=== PATIENT | female | born 1930 | race Caucasian/White ===

== ENCOUNTER 2018-12-28 14:50 | Emergency (ER) | payer MEDICARE, OTHER ==
[~2018-12-28] VITALS: Ht 167.6 cm; Wt 59.0 kg
--- NOTE | ~2018-12-28 | EKG ---
[facility] [address] [facility] [place], [place] [address] Draft EK completed, results pending confirmation PATIENT NAME: MICHAEL SMALL Electrocardiogram DATE OF : [birth year] PHYSICIAN: PRELIMINARY REPORT #: [id number] REPORT IS CONFIDENTIAL AND NOT TO BE RELEASED WITHOUT AUTHORIZATION
--- NOTE | ~2018-12-28 | EKG ---
[facility] [address] [facility] [place], [place] [address] Draft EKG completed, results pending confirmation PATIENT NAME: MICHAEL PAULINO [facility] Electrocardiogram DATE OF : [birth year] PHYSICIAN: PRELIMINARY REPORT #: [id number] REPORT IS CONFIDENTIAL AND NOT TO BE RELEASED WITHOUT AUTHORIZATION
--- OUTSIDE RECORDS SUMMARY | ~2018-12-28 | XMS | Encounter Summary ---
Demographics + + + | Address | [address] | | | [place] [address] | + + + | Home Phone | | + + + | Preferred Language | Unknown | + + + | Marital Status | | + + + | Buddhism Affiliation | Unknown | + + + | Race | Unknown | + + + | Ethnic Group | Unknown | + + + Author + + + | Author | [facility] | | | and [place] | + + + | Organization | [facility] | | | and Joseana | + + + | Address | Unknown | + + + | Phone | Unavailable | + + + Support + + +---------+ + | Name | Relationship | Address | Phone | + + +---------+ + | Nael Severe | ECON | Unknown | | + + +---------+ + Care Team Providers + +------+ + | Care Printing And Stamping Supervisor Name | Role | Phone | + +------+ + PCP | Unavailable | + +------+ + Encounter Details +--------+ + + + + | Date | Type | Department | Care Team | Description | +--------+ + + + + | 09/06/ | [facility] | [facility] | Jas Buchanan, | | | 2011 | Encounter | HOSPITAL REGIONAL | [address] [facility] | | | | | MEDICAL CL[address] | [facility] [place] | | | | | [address] [place], | [address] | | | | | [place] [address] | [phone] | | | | | [phone] | | | +--------+ + + + + Social History + +-------+ +--------+------+ | Tobacco Use | Types | Packs/Day | Years | Date | | | | | Used | | + +-------+ +--------+------+ | Never Assessed | | | | | + +-------+ +--------+------+ + + + | Sex Assigned at | Date Recorded | | | | + + + | Not on file | | + + + + + + + | Job Start Date | Occupation | Industry | + + + + | Not on file | Not on file | Not on file | + + + + + + + + | Travel History | Travel Start | Travel End | + + + + + + | No recent travel history available. | + + documented as of this encounter Medications at Time of Discharge + + + +---------+ + + | Medication | Sig | Dispensed | Refills | Start | End Date | | | | | | Date | | + + + +---------+ + + | oxyCODONE | take 1-2 tablets by | | 0 | 11/14/19 | | | (ROXICODONE) 5 mg | mouth every 4 hours | | | 10 | 7 | | tablet | as needed for pain | | | | | + + + +---------+ + + documented as of this encounter Plan of Treatment Not on filedocumented as of this encounter Visit Diagnoses Not on filedocumented in this encounter"
--- OUTSIDE RECORDS SUMMARY | ~2018-12-28 | XMS | Encounter Summary ---
Demographics + + + | Address | [address] | | | [place] [address] | + + + | Home Phone | | + + + | Preferred Language | Unknown | + + + | Marital Status | | + + + | Rastafari Affiliation | Unknown | + + + | Race | Unknown | + + + | Ethnic Group | Unknown | + + + Author + + + | Author | [facility] | | | and Joseana | + + + | Organization | [facility] | | | and Joseana [...] Team Providers + +------+ + | Care Head Butler Name | Role | Phone | + +------+ + PCP | Unavailable | + +------+ + Encounter Details +--------+ + + + + | Date | Type | Department | Care Team | Description | +--------+ + + + + | 03/26/ | Hospital | [facility] | Jas Buchanan, | | | 2011 | Encounter | HOSPITAL XRAY 900 | [address] [place] | | | | | [place] | [place] | | | | | [place] | [address] | | | | | [address] | [phone] | | | | | [phone] | | | +--------+ + + + [...]
--- OUTSIDE RECORDS SUMMARY | ~2018-12-28 | XMS | Encounter Summary ---
Demographics + + + | Address | [address] | | | [place] [address] | + + + | Home Phone | | + + + | Preferred Language | Unknown | + + + | Marital Status | | + + + | Adventist Affiliation | Unknown | + + + | Race | Unknown | + + + | Ethnic Group | Unknown | + + + Author + + + | Author | [facility] | | | and [place]ana | + + + | Organization | [facility] | | | and Joseana | [...] Team Providers + +------+ + | Care Clinical Abstractor Name | Role | Phone | + +------+ + PCP | Unavailable | + +------+ + Encounter Details +--------+ + + + + | Date | Type | Department | Care Team | Description | +--------+ + + + + | 03/01/ | Hospital | [facility] | Jas Buchanan, | | | 2013 | Encounter | HOSPITAL LABORATORY | [address] [place] | | | | | [address] [place] | [place] | | | | | [place] | [address] | | | | | [address] | [phone] | | | | | [phone] | | | +--------+ + + + [...] Not on filedocumented as of this encounter Procedures + +--------+ + + + | Procedure Name | Priori | Date/Time | Associated Diagnosis | Comments | | | ty | | | | + +--------+ + + + | URINALYSIS | STAT | 03/01/2013 | | Results for this | | | | 6:00 PM | | procedure are in the | | | | PST | | results section. | + +--------+ + + + documented in this encounter Results Urinalysis (03/01/2013 6:00 PM PST) + + + + + + | Component | Value | Ref Range | Performed | Pathologist | | | | | At | Signature | + + + + + + | Source | VOIDED | | EXTERNAL | | | | | | LAB | | + + + + + + | Color | YELLOW | YELLOW | EXTERNAL | | | | | | LAB | | + + + + + + | Clarity | CLEAR | CLEAR | EXTERNAL | | | | | | LAB | | + + + + + + | Glucose, | NORMAL | NORMAL mg/dL | EXTERNAL | | | Urine | | | LAB | | + + + + + + | Bilirubin, | NEGATIVE | NEGATIVE mg/dL | EXTERNAL | | | Urine | | | LAB | | + + + + + + | Ketones, | NEGATIVE | NEGATIVE mg/dL | EXTERNAL | | | Urine | | | LAB | | + + + + + + | Specific | 1.02 | 1.005 - 1.030 | EXTERNAL | | | [place], | | | LAB | | | Urine | | | | | + + + + + + | pH, Urine | 5 | 5.0 - 7.0 pH | EXTERNAL | | | | | | LAB | | + + + + + + | Protein, | NEGATIVE | NEGATIVE mg/dL | EXTERNAL | | | Urine | | | LAB | | + + + + + + | Urobilinoge | NORMAL | NORMAL mg/dL | EXTERNAL | | | n, Urine | | | LAB | | + + + + + + | Nitrite, | NEGATIVE | NEGATIVE | EXTERNAL | | | Urine | | | LAB | | + + + + + + | Blood, | NEGATIVE | NEGATIVE /uL | EXTERNAL | | | Urine | | | LAB | | + + + + + + | Leukocyte | 25 | NEGATIVE /uL | EXTERNAL | | | Esterase, | | | LAB | | | Urine | | | | | + + + + + + | WBC UA | NONE SEEN | </= 5 /HPF | EXTERNAL | | | | | | LAB | | + + + + + + | RBC COUNT | NONE SEEN | </= 5 PER HPF | EXTERNAL | | | | | | LAB | | + + + + + + | Culture | NO | | EXTERNAL | | | Indicated | | | LAB | | + + + + + + | Bacteria, | NONE SEEN | NONE SEEN /HPF | EXTERNAL | | | UA | | | LAB | | + + + + + + | SQUAMOUS | NONE SEEN | FEW /LPF | EXTERNAL | | | EPITHELIAL | | | LAB | | | UA | | | | | + + + + + + + + | Specimen | + + | | + + + +---------+ + + | Performing | Address | City/State/Zipcode | Phone Number | | Organization | | | | + +---------+ + + | EXTERNAL LAB | | | | + +---------+ + + documented in this encounter Visit Diagnoses Not on filedocumented in this encounter"
--- OUTSIDE RECORDS SUMMARY | ~2018-12-28 | XMS | Encounter Summary ---
Demographics + + + | Address | [address] | | | [place] [address] | + + + | Home Phone | | + + + | Preferred Language | Unknown | + + + | Marital Status | | + + + | Yarsani Affiliation | Unknown | + + + | Race | Unknown | + + + | Ethnic Group | Unknown | + + + Author + + + | Author | [facility] | | | and [place]ana | + + + | Organization | [facility] and [facility] | | | and Joseana [...] Team Providers + +------+ + | Care Rug Cleaning Supervisor Name | Role | Phone | + +------+ + PCP | Unavailable | + +------+ + Encounter Details +--------+ + + + + | Date | Type | Department | Care Team | Description | +--------+ + + + + | 07/09/ | Hospital | [facility] OP | Rustam Daily | | | 2009 | Encounter | CONVERSION | MD Rachel [address] | | | | | [address]PART[address] | | | [address] | [place] [address] | | | | | [place], [place] | [phone] | | | | | [address] | | | | | | [phone] | | | +--------+ + + + [...]
--- OUTSIDE RECORDS SUMMARY | ~2018-12-28 | XMS | Encounter Summary ---
Demographics + + + | Address | [address] | | | [place] [address] | + + + | Home Phone | | + + + | Preferred Language | Unknown | + + + | Marital Status | | + + + | Anglican Affiliation | Unknown | + + + | Race | Unknown | + + + | Ethnic Group | Unknown | + + + Author + + + | Author | [facility] | | | and [place] | + + + | Organization | [facility] and [facility] | | | and Joseana [...] Team Providers + +------+ + | Care Aircraft Designer Name | Role | Phone | + +------+ + PCP | Unavailable | + +------+ + Encounter Details +--------+ + + + + | Date | Type | Department | Care Team | Description | +--------+ + + + + | 11/10/ | Hospital | [facility] | Jas Buchanan, | | | 2009 | Encounter | HOSPITAL GENERIC OP | [address] [place] | | | | | CONVERSION | [place] | | | | | DEPART[address] | [address] | | | | | [place] | [phone] | | | | | [place] | | | | | | [address] | | | | | | [phone] | | | +--------+ + + + [...]
--- OUTSIDE RECORDS SUMMARY | ~2018-12-28 | XMS | Encounter Summary ---
Demographics + + + | Address | [address] | | | [place] [address] | + + + | Home Phone | | + + + | Preferred Language | Unknown | + + + | Marital Status | | + + + | Amish Affiliation | Unknown | + + + | Race | Unknown | + + + | Ethnic Group | Unknown | + + + Author + + + | Author | [facility] and [facility] | | | and Joseana | + + + | Organization | [facility] and [facility] | | [...] Team Providers + +------+ + | Care Oil Burner Installer Name | Role | Phone | + +------+ + PCP | Unavailable | + +------+ + Encounter Details +--------+ + + + + | Date | Type | Department | Care Team | Description | +--------+ + + + + | 10/28/ | Hospital | [facility] | Luis Hyde E, | | | 2009 | Encounter | MED CTR GENERIC OP | MD [address] [facility] | | | | | CONV DEPT [address] | [place] | | | | | [place], | [id number] | | | | | [place] [address] | | | | | | [phone] | | | +--------+ + + + [...]
--- OUTSIDE RECORDS SUMMARY | ~2018-12-28 | XMS | Encounter Summary ---
Demographics + + + | Address | [address] | | | [place] [address] | + + + | Home Phone | | + + + | Preferred Language | Unknown | + + + | Marital Status | | + + + | Mandaeism Affiliation | Unknown | + + + | Race | Unknown | + + + | Ethnic Group | Unknown | + + + Author + + + | Author | [facility] | | | and Joseana | + + + | Organization | [facility] and [facility] | | | and Joseana [...] Team Providers + +------+ + | Care Technical Account Manager Name | Role | Phone | + +------+ + | Adolph Balderas MD | PCP | | + +------+ + Reason for Visit + + + | Reason | Comments | + + + | Appointment Question | | + + + Encounter Details +--------+ + + + + | Date | Type | Department | Care Team | Description | +--------+ + + + + | 05/11/ | Telephone | [facility] | Luis [place], | Appointment Question | | 2016 | | ORTHOPEDIC SURGERY | MD [address] [facility] | | | | | [address] [facility] | [place] | | | | | [place] | [address] | | | | | [address] | | | | | | [phone] | | | +--------+ + + + + Social History + +-------+ +--------+------+ | Tobacco Use | Types | Packs/Day | Years | Date | | | | | Used | | + +-------+ +--------+------+ | Never Smoker | | | | | + +-------+ +--------+------+ + +---+---+---+ | Smokeless Tobacco: | | | | | Never Used | | | | + +---+---+---+ + + +---------+ + | Alcohol Use | Drinks/Week | oz/Week | Comments | + + +---------+ + | No | | | | + + +---------+ + + + + | Sex Assigned at [...]
--- OUTSIDE RECORDS SUMMARY | ~2018-12-28 | XMS | Encounter Summary ---
Demographics + + + | Address | [address] | | | [place] [address] | + + + | Home Phone | | + + + | Preferred Language | Unknown | + + + | Marital Status | | + + + | Sabianist Affiliation | Unknown | + + + | Race | Unknown | + + + | Ethnic Group | Unknown | + + + Author + + + | Author | [facility] | | | and [place] | + + + | Organization | [facility] | | | and Joseana [...] Team Providers + +------+ + | Care Charge Nurse Name | Role | Phone | + +------+ + PCP | Unavailable | + +------+ + Encounter Details +--------+ + + + + | Date | Type | Department | Care Team | Description | +--------+ + + + + | 12/10/ | [facility] | [place] | Jas Buchanan, | | | 2011 | Encounter | HOSPITAL REGIONAL | [address] [facility] | | | | | MEDICAL CLINIC [address] | [facility] [place] | | | | | [address] [place], | [address] | | | | | [place] [address] | [phone] | | | | | [phone] | | | +--------+ + + + [...]
--- OUTSIDE RECORDS SUMMARY | ~2018-12-28 | XMS | Encounter Summary ---
Demographics + + + | Address | [address] | | | [place] [address] | + + + | Home Phone | | + + + | Preferred Language | Unknown | + + + | Marital Status | | + + + | Synagogue Affiliation | Unknown | + + + | Race | Unknown | + + + | Ethnic Group | Unknown | + + + Author + + + | Author | [facility] and [facility] | | | and [place]ana | + + + | Organization | [facility] and [facility] | | | and Joseana [...] Team Providers + +------+ + | Care Press Machine Operator Name | Role | Phone | + +------+ + PCP | Unavailable | + +------+ + Encounter Details +--------+ + + + + | Date | Type | Department | Care Team | Description | +--------+ + + + + | 12/11/ | Hospital | [facility] | Luis Hyde, | | | 2009 | Encounter | MED CTR LABORATORY | [address] [place] [address] | | | | | [address] | [place] | | | | | [place] | [address] | | | | | [address] | | | | | | [phone] | | | +--------+ + + + [...]
--- OUTSIDE RECORDS SUMMARY | ~2018-12-28 | XMS | Encounter Summary ---
Demographics + + + | Address | [address] | | | [place] [address] | + + + | Home Phone | | + + + | Preferred Language | Unknown | + + + | Marital Status | | + + + | Mandaeism Affiliation | Unknown | + + + | Race | Unknown | + + + | Ethnic Group | Unknown | + + + Author + + + | Author | [facility] and [facility] | | | and [place] | + + + | Organization | [facility] and [facility] | | | and Joseana [...] Team Providers + +------+ + | Care Public Records Officer Name | Role | Phone | + +------+ + PCP | Unavailable | + +------+ + Encounter Details +--------+ + + + + | Date | Type | Department | Care Team | Description | +--------+ + + + + | 10/18/ | Hospital | [facility] | Graeme Solorio | | | 2012 | Encounter | HOSPITAL LABORATORY | [place]AB[place] [address] | | | | | [address] [place] | [facility] [place] | | | | | [place], [place] | [address] | | | | | [address] | [phone] | | | | | [phone] | | | +--------+ + + + [...]
--- OUTSIDE RECORDS SUMMARY | ~2018-12-28 | XMS | Encounter Summary ---
Demographics + + + | Address | [address] | | | [place] [address] | + + + | Home Phone | | + + + | Preferred Language | Unknown | + + + | Marital Status | | + + + | Jehovah'S Witness Affiliation | Unknown | + + + | Race | Unknown | + + + | Ethnic Group | Unknown | + + + Author + + + | Author | [facility] | | | and [place] | + + + | Organization | [facility] | | | and [...] Team Providers + +------+ + | Care Cottrell Blower Name | Role | Phone | + +------+ + PCP | Unavailable | + +------+ + Encounter Details +--------+ + + + + | Date | Type | Department | Care Team | Description | +--------+ + + + + | 05/13/ | Hospital | [facility] | Dionicio Lucia, | | | 2012 | Encounter | HOSPITAL LABORATORY | 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
--- OUTSIDE RECORDS SUMMARY | ~2018-12-28 | XMS | Encounter Summary ---
Demographics + + + | Address | [address] | | | [place] [address] | + + + | Home Phone | | + + + | Preferred Language | Unknown | + + + | Marital Status | | + + + | Hoahaoism Affiliation | Unknown | + + + | Race | Unknown | + + + | Ethnic Group | Unknown | + + + Author + + + | Author | [facility] | | | and [place] | + + + | Organization | [facility] and [facility] | | | and [place]ana | [...] Team Providers + +------+ + | Care Photo Lab Technician Name | Role | Phone | + +------+ + PCP | Unavailable | + +------+ + Encounter Details +--------+ + + + + | Date | Type | Department | Care Team | Description | +--------+ + + + + | 12/09/ | [facility] | [place] [facility] | Jas Buchanan, | | | 2011 | Encounter | HOSPITAL REGIONAL | [address] [facility] | | | | | MEDICAL CL[address] | [facility] | | | | | [address] [facility], | [address] | | | | | [place] [address] | [phone] | | | | | [phone] | | | +--------+ + + + [...]
--- OUTSIDE RECORDS SUMMARY | ~2018-12-28 | XMS | Encounter Summary ---
Demographics + + + | Address | [address] | | | [place] [address] | + + + | Home Phone | | + + + | Preferred Language | Unknown | + + + | Marital Status | | + + + | Restorationism Affiliation | Unknown | + + + | Race | Unknown | + + + | Ethnic Group | Unknown | + + + Author + + + | Author | [facility] and [facility] | | | and [place] | + + + | Organization | [facility] | | | and Joseana [...] Team Providers + +------+ + | Care Laminate Floor Installer Name | Role | Phone | [...] | | ORTHOPEDIC SURGERY | MD [address] [facility] | | | | | [address] [facility] | [place] | | | | | [place] | [address] | | | | | [address] | | | | | | [phone] | | | +--------+ + + + [...]
--- OUTSIDE RECORDS SUMMARY | ~2018-12-28 | XMS | Encounter Summary ---
Demographics + + + | Address | [address] | | | [place] [address] | + + + | Home Phone | | + + + | Preferred Language | Unknown | + + + | Marital Status | | + + + | Restorationist Affiliation | Unknown | + + + | Race | Unknown | + + + | Ethnic Group | Unknown | + + + Author + + + | Author | and [facility] | | | and [place] | + + + | Organization | and [facility] | | | and [place]ana [...] Team Providers + +------+ + | Care Network Diagnostic Support Specialist Name | Role | Phone | + +------+ + PCP | Unavailable | + +------+ + Encounter Details +--------+ + + + + | Date | Type | Department | Care Team | Description | +--------+ + + + + | 12/23/ | Hospital | [facility] | Jas Buchanan, | | | 2011 | Encounter | HOSPITAL LABORATORY | [address] [place] | | | | | [address] [place] | [place] | | | | | [place] | [address] | | | | | [address] | [phone] | | | | | [phone] | | | +--------+ + + + [...]
--- OUTSIDE RECORDS SUMMARY | ~2018-12-28 | XMS | Encounter Summary ---
Demographics + + + | Address | [address] | | | [place] [address] | + + + | Home Phone | | + + + | Preferred Language | Unknown | + + + | Marital Status | | + + + | Caodaism Affiliation | Unknown | + + + | Race | Unknown | + + + | Ethnic Group | Unknown | + + + Author + + + | Author | [facility] and [facility] | | | and [place] | + + + | Organization | [facility] and [facility] | | | and [...] Team Providers + +------+ + | Care General Manager Food Name | Role | Phone | + +------+ + PCP | Unavailable | + +------+ + Encounter Details +--------+ + + + + | Date | Type | Department | Care Team | Description | +--------+ + + + + | 12/23/ | Hospital | [facility] | Jas Buchanan, | | | 2011 | Encounter | HOSPITAL LABORATORY | [address] [place] | | | | | [address] [place] | [place] | | | | | [place] | [address] | | | | | [address] | [phone] | | | | | [phone] | | | +--------+ + + + [...]
--- OUTSIDE RECORDS SUMMARY | ~2018-12-28 | XMS | Encounter Summary ---
Demographics + + + | Address | [address] | | | [place] [address] | + + + | Home Phone | | + + + | Preferred Language | Unknown | + + + | Marital Status | | + + + | Catholic Affiliation | Unknown | + + + | Race | Unknown | + + + | Ethnic Group | Unknown | + + + Author + + + | Author | [facility] and [facility] | | | and [place] | + + + | Organization | [facility] | | | and Jose[place] | [...] Team Providers + +------+ + | Care Window Shade Installer Name | Role | Phone | + +------+ + PCP | Unavailable | + +------+ + Encounter Details +--------+ + + + + | Date | Type | Department | Care Team | Description | +--------+ + + + + | 10/11/ | Hospital | [facility] | Graeme Solorio | | | 2011 | Encounter | HOSPITAL LABORATORY | ELISABETH Erazo [address] | | | | | [address] [place] | [place], [place] | | | | | [place], [place] | [address] | | | | | [address] | [phone] | | | | | [phone] | | | +--------+ + + + [...]
--- OUTSIDE RECORDS SUMMARY | ~2018-12-28 | XMS | Encounter Summary ---
Demographics + + + | Address | [address] | | | [place] [address] | + + + | Home Phone | | + + + | Preferred Language | Unknown | + + + | Marital Status | | + + + | Gnosticism Affiliation | Unknown | + + + | Race | Unknown | + + + | Ethnic Group | Unknown | + + + Author + + + | Author | [facility] and [facility] | | | and [place] | + + + | Organization | [facility] and [facility] | | | and [place] [...] Team Providers + +------+ + | Care Business Office Technology Instructor Name | Role | Phone | + +------+ + PCP | Unavailable | + +------+ + Encounter Details +--------+ + + + + | Date | Type | Department | Care Team | Description | +--------+ + + + + | 04/13/ | Hospital | [facility] | | | | 1997 | Encounter | MED CTR MP INTRA OP | | | | | | [address] | | | | | | [place] | | | | | | [address] | | | | | | [phone] | | | +--------+ + + + [...]
--- OUTSIDE RECORDS SUMMARY | ~2018-12-28 | XMS | Encounter Summary ---
Demographics + + + | Address | [address] | | | [place] [address] | + + + | Home Phone | | + + + | Preferred Language | Unknown | + + + | Marital Status | | + + + | Hinduism Affiliation | Unknown | + + + | Race | Unknown | + + + | Ethnic Group | Unknown | + + + Author + + + | Author | [facility] and [facility] | | | and [place] | + + + | Organization | [facility] | | | and Joseana | [...] Team Providers + +------+ + | Care Strap Stitcher Name | Role | Phone | + [...] | [address] | [place] [address] | | | | | [place], [place] | [phone] | | | | | [address] | | | | | | [phone] | | | +--------+ + + + [...]
--- OUTSIDE RECORDS SUMMARY | ~2018-12-28 | XMS | Encounter Summary ---
Demographics + + + | Address | [address] | | | [place] [address] | + + + | Home Phone | | + + + | Preferred Language | Unknown | + + + | Marital Status | | + + + | Yazidi Affiliation | Unknown | + + + | Race | Unknown | + + + | Ethnic Group | Unknown | + + + Author + + + | Author | [facility] | | | and [place]ana | + + + | Organization | [facility] | | | and Joseana [...] Team Providers + +------+ + | Care Second Time Worker Name | Role | Phone | + +------+ + PCP | Unavailable | + +------+ + Encounter Details +--------+ + + + + | Date | Type | Department | Care Team | Description | +--------+ + + + + | 10/28/ | Abstract | [facility] | DATA MIGRATION [facility]THA | | | 2011 | | Conversion Location | SR | | | | | [phone] | | | +--------+ + + + [...] + + documented as of this encounter Last Filed Vital Signs + + + + + | Vital Sign | Reading | Time Taken | Comments | + + + + + | Blood Pressure | 126/72 | 10/28/2009 12:00 AM | | | | | PDT | | + + + + + | Pulse | - | - | | + + + + + | Temperature | - | - | | + + + + + | Respiratory Rate | - | - | | + + + + + | Oxygen Saturation | - | - | | + + + + + | Inhaled Oxygen | - | - | | | Concentration | | | | + + + + + | Weight | 72.6 kg (160 lb) | 11/20/2009 12:00 AM | | | | | PDT | | + + + + + | Height | 167.6 cm (5' 6") | 10/02/2009 12:00 AM | | | | | PDT | | + + + + + | Body Mass Index | 25.82 | 10/02/2009 12:00 AM | | | | | PDT | | + + + + + documented in this encounter Plan of Treatment Not on filedocumented as of this encounter Visit Diagnoses Not on filedocumented in this encounter
--- OUTSIDE RECORDS SUMMARY | ~2018-12-28 | XMS | Encounter Summary ---
Demographics + + + | Address | [address] | | | [place] [address] | + + + | Home Phone | | + + + | Preferred Language | Unknown | + + + | Marital Status | | + + + | Restoration Affiliation | Unknown | + + + | Race | Unknown | + + + | Ethnic Group | Unknown | + + + Author + + + | Author | [facility] | | | and Joseana | + + + | Organization | [facility] | | | and Joseana [...] Team Providers + +------+ + | Care Underground Conduit Installer Name | Role | Phone | + +------+ + PCP | Unavailable | + +------+ + Encounter Details +--------+ + + + + | Date | Type | Department | Care Team | Description | +--------+ + + + + | 10/18/ | Hospital | [facility] | Graeme Solorio | | | 2012 | Encounter | [facility] | [place], [address] | | | | | [facility] [address] | [facility] [place], [place] | | | | | [address] [facility], | [address] | | | | | [place] [address] | [phone] | | | | | [phone] | | | +--------+ + + + [...]
--- OUTSIDE RECORDS SUMMARY | ~2018-12-28 | XMS | Encounter Summary ---
Demographics + + + | Address | [address] | | | [place] [address] | + + + | Home Phone | | + + + | Preferred Language | Unknown | + + + | Marital Status | | + + + | Yazdanism Affiliation | Unknown | + + + | Race | Unknown | + + + | Ethnic Group | Unknown | + + + Author + + + | Author | [facility] | | | and [place] | + + + | Organization | [facility] | | | and Joseana [...] Team Providers + +------+ + | Care Implementation Architect Name | Role | Phone | + +------+ + PCP | Unavailable | + +------+ + Encounter Details +--------+ + + + + | Date | Type | Department | Care Team | Description | +--------+ + + + + | 05/13/ | [facility] | [facility] | Dionicio Lucia, | | | 2012 | Encounter | [facility] | 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
--- OUTSIDE RECORDS SUMMARY | ~2018-12-28 | XMS | Encounter Summary ---
Demographics + + + | Address | [address] | | | [place] [address] | + + + | Home Phone | | + + + | Preferred Language | Unknown | + + + | Marital Status | | + + + | Hinduism Affiliation | Unknown | + + + | Race | Unknown | + + + | Ethnic Group | Unknown | + + + Author + + + | Author | [facility] | | | and Joseana | + + + | Organization | [facility] | | | and [...] Team Providers + +------+ + | Care Water Treatment Specialist Name | Role | Phone | [...] | [address] [place] | [facility] [place] | | | | | [place], [place] | [address] | | | | | [address] | [phone] | | | | | [phone] | | | +--------+ + + + [...]
--- OUTSIDE RECORDS SUMMARY | ~2018-12-28 | XMS | Encounter Summary ---
Demographics + + + | Address | [address] | | | [place] [address] | + + + | Home Phone | | + + + | Preferred Language | Unknown | + + + | Marital Status | | + + + | Cheondoism Affiliation | Unknown | + + + | Race | Unknown | + + + | Ethnic Group | Unknown | + + + Author + + + | Author | [facility] | | | and Joseana | + + + | Organization | [facility] | | | and [...] Team Providers + +------+ + | Care Civil Geotechnical Engineer Name | Role | Phone | + +------+ + PCP | Unavailable | + +------+ + Encounter Details +--------+ + + + + | Date | Type | Department | Care Team | Description | +--------+ + + + + | 05/13/ | Hospital | [place] [facility] | Dionicio Lucia, | | | 2012 | Encounter | [facility] | 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
--- OUTSIDE RECORDS SUMMARY | ~2018-12-28 | XMS | Encounter Summary ---
Demographics + + + | Address | [address] | | | [place] [address] | + + + | Home Phone | | + + + | Preferred Language | Unknown | + + + | Marital Status | | + + + | Mandaeism Affiliation | Unknown | + + + | Race | Unknown | + + + | Ethnic Group | Unknown | + + + Author + + + | Author | [facility] | | | and Joseana | + + + | Organization | [facility] | | | and [...] Team Providers + +------+ + | Care Overhead Worker Name | Role | Phone | + +------+ + PCP | Unavailable | + +------+ + Encounter Details +--------+ + + + + | Date | Type | Department | Care Team | Description | +--------+ + + + + | 11/05/ | Hospital | [facility] | Luis Hyde, | | | 2009 - | Encounter | MED CTR GENERIC IP | MD [address] [facility] | | | | | CONV DEPT [address] | [place] | | | 11/08/ | | [place], | [address] | | | 2009 | | [place] [address] | | | | | | [phone] | | | +--------+ + + + [...]
--- OUTSIDE RECORDS SUMMARY | ~2018-12-28 | XMS | Encounter Summary ---
Demographics + + + | Address | [address] | | | [place] [address] | + + + | Home Phone | | + + + | Preferred Language | Unknown | + + + | Marital Status | | + + + | Gnosticism Affiliation | Unknown | + + + | Race | Unknown | + + + | Ethnic Group | Unknown | + + + Author + + + | Author | [facility] | | | and Joseana | + + + | Organization | [facility] | | | and Joseana [...] Team Providers + +------+ + | Care Comparison Shopper Name | Role | Phone | + +------+ + | Adolph Balderas MD | PCP | | + +------+ + Encounter Details +--------+ + + + + | Date | Type | Department | Care Team | Description | +--------+ + + + + | 07/20/ | Hospital | [facility] | Luis Hyde, | Chronic pain of | | 2017 | Encounter | MED CTR SHANTEL XRAY | [address] [facility] | right knee; Pain due | | | | [address] [place] | [place] | to total knee | | | | [place] | [address] | replacement, initial | | | | [address] | | encounter (HCC) | | | | [phone] | | | +--------+ + + + [...] | + +--------+ + + + | XR KNEE RIGHT 1 - 2 | Routin | 07/20/2016 | Chronic pain of | Results for this | | VW | e | 10:49 AM | right knee Pain due | procedure are in the | | | | PDT | to total knee | results section. | | | | | replacement, initial | | | | | | encounter (HCC) | | + +--------+ + + + documented in this encounter Results XR Knee Right 1 - 2 Vw (07/20/2016 10:49 AM PDT) + + | Specimen | + + | | + + + + + | Narrative | Performed At | + + + | CLINICAL INFORMATION: Painful Right Total Knee Arthroplasty. | [facility] | | COMPARISON: 12/11/2009. FINDINGS: 2 views of the right knee. | [facility] | | Total knee arthroplasty changes without evidence to suggest hardware | [facility] | | complication. No joint effusion. No acute osseous abnormality. | - IMAGING | | IMPRESSION - No evidence of interval complication. Dictated and | | | Signed by: Evan Kim MD Electronically signed: 07/20/2016 | | | 12:49 PM | | + + + + + | Procedure Note | + + | Rajendra Ling Results In - 07/20/2016 12:52 PM PDT CLINICAL INFORMATION: Painful Right | | Total Knee Arthroplasty.COMPARISON: 12/11/2009.FINDINGS: 2 views of the right knee. | | Total knee arthroplasty changes without evidence to suggest hardwarecomplication. No | | joint effusion.No acute osseous abnormality.IMPRESSION - No evidence of interval | | complication.Dictated and Signed by: Evan Kim MD Electronically signed: 07/20/2016 | | 12:49 PM | | | |Total knee arthroplasty changes without evidence to suggest hardware | |complication. No joint effusion. | | | |No acute osseous abnormality. | | | |IMPRESSION - No evidence of interval complication. | | | |Dictated and Signed by: Evan Kim MD | | Electronically signed: 07/20/2016 12:49 PM | + + + + + + + | Performing | Address | City/State/Zipcode | Phone Number | | Organization | | | | + + + + + | [address] | [address] | [place] | [phone] | | [facility] | | [address] | | | - IMAGING | | | | + + + + + documented in this encounter Visit Diagnoses + + | Diagnosis | + + | Chronic pain of right knee | + + | Pain due to total knee replacement, initial encounter (HCC) | + + documented in this encounter"
--- OUTSIDE RECORDS SUMMARY | ~2018-12-28 | XMS | Encounter Summary ---
Demographics + + + | Address | [address] | | | [place] [address] | + + + | Home Phone | | + + + | Preferred Language | Unknown | + + + | Marital Status | | + + + | Scientologist Affiliation | Unknown | + + + | Race | Unknown | + + + | Ethnic Group | Unknown | + + + Author + + + | Author | [facility] | | | and [place]ana | + + + | Organization | [facility] | | | and [...] Team Providers + +------+ + | Care Felt Carbonizer Name | Role | Phone | + +------+ + PCP | Unavailable | + +------+ + Encounter Details +--------+ + + + + | Date | Type | Department | Care Team | Description | +--------+ + + + + | 03/02/ | Hospital | [facility] | Gopi Souza | | | 2011 | Encounter | [facility]PITAL [facility] | MD Mathieu [address] | | | | | CENTER [address] | [place] | | | | | [place] | [address] | | | | | [address] | [phone] | | | | | [phone] | | | +--------+ + + + [...]
--- OUTSIDE RECORDS SUMMARY | ~2018-12-28 | XMS | Encounter Summary ---
Demographics + + + | Address | [address] | | | [place] [address] | + + + | Home Phone | | + + + | Preferred Language | Unknown | + + + | Marital Status | | + + + | Gnosticism Affiliation | Unknown | + + + | Race | Unknown | + + + | Ethnic Group | Unknown | + + + Author + + + | Author | [facility] | | | and Joseana | + + + | Organization | [facility] | | | and [...] Team Providers + +------+ + | Care Chute Greaser Name | Role | Phone | + [...] | | | [place] | [address] | | | | | [address] | [phone] | | | | | [phone] | | | +--------+ + + + [...]
--- OUTSIDE RECORDS SUMMARY | ~2018-12-28 | XMS | Encounter Summary ---
Demographics + + + | Address | [address] | | | [place] [address] | + + + | Home Phone | | + + + | Preferred Language | Unknown | + + + | Marital Status | | + + + | Jewish Affiliation | Unknown | + + + | Race | Unknown | + + + | Ethnic Group | Unknown | + + + Author + + + | Author | [facility] | | | and Joseana | + + + | Organization | [facility] | | | and Joseana [...] Team Providers + +------+ + | Care Supervisor Motor Vehicle Assembly Name | Role | Phone | + +------+ + | Adolph Balderas MD | PCP | | + +------+ + Reason for Visit + + + | Reason | Comments | + + + | New Patient | bilateral knee pain | + + + Self-referral (Routine) +--------+--------+ + + + + | Status | Reason | Specialty | Diagnoses / | Referred By | Referred To | | | | | Procedures | Contact | Contact | +--------+--------+ + + + + | Closed | | Orthopedic | Diagnoses | | Barrett, | | | | Surgery | Bilateral | | Luis Norman MD | | | | | knee pain | | [address] | | | | | | | [place], | | | | | | | [place] [address] | | | | | | | Phone: | | | | | | | [phone] | | | | | | | Fax: | | | | | | | [phone] | +--------+--------+ + + + + Encounter Details +--------+---------+ + + + | Date | Type | Department | Care Team | Description | +--------+---------+ + + + | 07/20/ | Office | [facility] [place] | Luis Hyde, | Chronic pain of | | 2017 | Visit | ORTHOPEDIC SURGERY | [address] | right knee (Primary | | | | [address] | [place] | Dx); Pain due to | | | | [place] | [address] | total knee | | | | [address] | | replacement, initial | | | | [phone] | | encounter (HCC); | | | | | | Primary | | | | | | osteoarthritis of | | | | | | left knee | +--------+---------+ + + + Social History + +-------+ [...] + + + | Blood Pressure | - | - | | + + + + + | Pulse | - | - | | + + + + + | Temperature | 36.2 C (97.2 F) | 07/20/2016 10:54 AM | | | | | PDT [...] + + + + | Weight | 54.4 kg (120 lb) | 07/20/2016 10:54 AM | | | | | PDT | | + + + + + | Height | 167.6 cm (5' 6") | 07/20/2016 10:54 AM | | | | | PDT | | + + + + + | Body Mass Index | 19.37 | 07/20/2016 10:54 AM | | | | | PDT | | + + + + + documented in this encounter Progress Notes Luis Hyde MD - 07/20/2016 11:15 AM PDTFormatting of this note might be different fro m the original. History of present illness: Deysi is a 86 y.o. female who presents bilateral knee pain She is new due to time but well known to me as I did right TKA several years ago She has done very well with her right knee but she recently did a bunch of yardwork includi ng digging holes with a shovel using her right lower extremity She got soreness over the anterior aspect of the knee and it worried her about the status o f her knee replacement She feels a lot better now that she's finished her gardening and is not having to do shovel ing anymore Her left knee is bothering her more with pain mostly at the medial joint line and aggravate d by activity She had a steroid injection 3 weeks ago and it feels much much better And so she is here mostly tablet evaluation of her right knee prosthesis No past medical history on file. Past Surgical History: Procedure Laterality Date APPENDECTOMY HYSTERECTOMY Allergies Allergen Reactions Sulfa Antibiotics No current outpatient prescriptions on file prior to visit. No current facility-administered medications on file prior to visit. No family history on file. Social History Social History Marital status: Spouse name: N/A Number of children: N/A Years of education: N/A Occupational History Not on file. Social History Main Topics Smoking status: Never Smoker Smokeless tobacco: Never Used Alcohol use No Drug use: No Sexual activity: Not on file Other Topics Concern Not on file Social History Narrative No narrative on file Review of Systems This has been reviewed. All other entries are negative except for those checked below. JENEA A. FAULDS Eyes: [] Double vision [] Glasses/contacts [] Failing vision Ear/Nose/Throat: [] Frequent Colds [] Sinus Disease [] Nose obstruction [] Sneezing Spells [] Change in taste [] Artificial teeth [] Ears ringing [] Ear pain [] Hearing loss [] Teeth problems [x] Hoarseness [] Neck swelling [] Sore throat [] Congestion [] Nosebleeds [] Nasal allergies Respiratory: [] Asthma/Wheezing [] Pneumonia [] Night sweats [] Shortness of breath [] Chronic cough [] Coughing up blood [] Exposure to tuberculosis Cardiovascular: [] Heart Problems [] Hypertension [] Heart murmur [] Palpitations [] Rheumatic fever [] Phlebitis [] Chest pain [] Ankle swelling [] Leg cramps [] Racin g heart [] Skipping beats [] Blood clots Gastrointestinal: [] Abdominal pain [] Heartburn [] Blood from rectum [] Colitis [] Gallbladder problems [] Troubl e swallowing [] Bloated stomach [] Change in stools [] Vomiting blood [] Nausea [] Hemorrhoids [] Jaundice [ ] Hepatitis [x] Diarrhea [] Constipation [] Diverticulitis Urinary Tract: [] Painful urination [] Kidney Stones [] Any urine leakage [] Weak urine stream [] Night urination [] Urine infections [] Bedwetting [] Blood in urine Skin: [] Skin rashes [] Itching/Burning [x] Skin bruises easi ly [] Artificial tanning [] Skin cancer [x] Hair loss [] Changes in moles Musculoskeletal: [] Physical handicaps [x] Back or shoulder pain []Rheumatoid disease [] Osteoarthritis [x] Joint pain [] Joint swelling []Gout [] Leg cramps at night Neurological: [] Headaches [] Seizures [] Stroke/TIA [] Faintness [] Tremors [] Numbness [x] Dizziness [] Changes in handwriting [x] Memory loss [x] Shooting pains Psychiatric: [] Depression [] Suicidal thoughts [] Sleep pattern changes [] Appetite changes [] Recent counseling [] Nervousness/anxiety [] Physical violence [] Marital problems Endocrine: [] Thyroid [] Diabetes Systemic: []Weight loss/gain (over 10 lbs) []Fever/chills []Fatigue [] Sleeping Difficulties [] Speech change [x] Voice change Vitals: 07/20/16 1054 Temp: 36.2 C (97.2 F) PainSc: 0 - No pain Estimated body mass index is 19.37 kg/m as calculated from the following: Height as of this encounter: 1.676 m (5' 6"). Weight as of this encounter: 54.4 kg (120 lb). On physical exam her right knee comes into full extension She flexes 115 No medial or lateral tenderness She has mild tenderness over the proximal insertion site patella tendon No obvious suprapatellar pouch effusion No varus or valgus stress instability throughout the range of motion The left knee has mild medial and lateral joint line tenderness She has patella crepitus with range of motion The skin is without rashes or lesions She has intact dorsalis pedis and posterior tibial pulses bilaterally X-rays right knee show excellent alignment and position of her cemented knee replacement co mponents There is no evidence of loosening and no fractures X-rays left knee show advanced osteoarthritis Assessment: 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 | [facility] | | COMPARISON: 12/11/2009. FINDINGS: 2 views of the right knee. | [facility] | | Total knee arthroplasty changes without evidence to suggest hardware | [facility] | | complication. No joint effusion. [...] ST. | [address] 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
--- OUTSIDE RECORDS SUMMARY | ~2018-12-28 | XMS | Encounter Summary ---
Demographics + + + | Address | [address] | | | [place] [address] | + + + | Home Phone | | + + + | Preferred Language | Unknown | + + + | Marital Status | | + + + | Muslim Affiliation | Unknown | + + + | Race | Unknown | + + + | Ethnic Group | Unknown | + + + Author + + + | Author | [facility] | | | and [place] | + + + | Organization | [facility] | | | and [place] | [...] Team Providers + +------+ + | Care Associate Research Scientist Name | Role | Phone | + [...] | | [address] [place] | [facility], [place] | | | | | [place], [place] | [address] | | | | | [address] | [phone] | | | | | [phone] | | | +--------+ + + + [...]
--- OUTSIDE RECORDS SUMMARY | ~2018-12-28 | XMS | Encounter Summary ---
Demographics + + + | Address | [address] | | | [place] [address] | + + + | Home Phone | | + + + | Preferred Language | Unknown | + + + | Marital Status | | + + + | Presybeterian Affiliation | Unknown | + + + | Race | Unknown | + + + | Ethnic Group | Unknown | + + + Author + + + | Author | [facility] | | | and [place] | + + + | Organization | [facility] | | | and [place] | [...] Team Providers + +------+ + | Care Environmental Planner Name | Role | Phone | + [...] | | | | | | [place] [address] | | | | | | | Phone: | | | | | | | [phone] | | | | | | | Fax: | | | | | | | [phone] | +--------+--------+ + + + + Encounter [...] | | | | [place] | [address] | total knee | | | | [address] | | replacement, initial | | | | [phone] | | encounter (HCC); | | | [...] evidence of loosening Her left knee has gowy-sg-rrxg osteoarthritis and she is coping with the [...] [address] | [place] | [phone] | | [facility] | | [address] | | | - IMAGING | | [...]
--- OUTSIDE RECORDS SUMMARY | ~2018-12-28 | XMS | Encounter Summary ---
Demographics + + + | Address | [address] | | | [place] [address] | + + + | Home Phone | | + + + | Preferred Language | Unknown | + + + | Marital Status | | + + + | Synagogue Affiliation | Unknown | + + + | Race | Unknown | + + + | Ethnic Group | Unknown | + + + Author + + + | Author | [facility] | | | and [place] | + + + | Organization | [facility] | | | and [place] | [...] Team Providers + +------+ + | Care Seat Coverer Name | Role | Phone | + +------+ + | Adolph Balderas MD | PCP | | + +------+ + Reason for Visit + + + | Reason | Comments | + + + | Back Pain | | + + + | Incontinence | | + + + Encounter Details +--------+ + + + + | Date | Type | Department | Care Team | Description | +--------+ + + + + | 08/28/ | Emergency | [facility] | Wander Navarro, | Intermittent urinary | | 2016 | | [facility] | MD [address] | incontinence | | | | CENTER [address] | [facility] [place] | (Primary Dx); Acute | | | | [place], [place] | [place] [address] | midline low back | | | | [address] | [phone] | pain without | | | | [phone] | | sciatica; | | | | | | Paresthesias; | | | | | | Diarrhea | +--------+ + + + + Social [...] + + + | Blood Pressure | 139/60 | 08/29/2015 12:46 AM | | | | | PDT | | + + + + + | Pulse | 65 | 08/29/2015 3:00 AM | | | | | PDT | | + + + + + | Temperature | - | - | | + + + + + | Respiratory Rate | 16 | 08/29/2015 12:09 AM | | | | | PDT | | + + + + + | Oxygen Saturation | 95% | 08/29/2015 3:00 AM | | | | | PDT | | + + + + + | Inhaled Oxygen | - | - | | | Concentration | | | | + + + + + | Weight | 68 kg (150 lb) | 08/29/2015 12:09 AM | | | | | PDT | | + + + + + | Height | 167.6 cm (5' 6") | 08/29/2015 12:09 AM | | | | | PDT | | + + + + + | Body Mass Index | 24.21 | 08/29/2015 12:09 AM | | | | | PDT | | + + + + + documented in this encounter Discharge Instructions Instructions Sandy Canas RN - 08/29/2015Take the medicine as prescribed Follow-up with your doctor AttachmentsThe following attachments cannot be sent through Care Everywhere.BACK PAIN (ACUT E OR CHRONIC) (DJIBOUTIAN)documented in this encounter Medications at Time of Discharge + + + +---------+ + + | Medication | Sig | Dispensed | Refills | Start | End Date | | | | | | Date | | + + + +---------+ + + | cyclobenzaprine | Take 1 tablet by | 20 | 0 | 08/29/19 | | | (FLEXERIL) 10 mg | mouth 3 times daily | tablet | | 16 | 6 | | tablet | as needed for Muscle | | | | | | | spasms for up to 14 | | | | | | | days. | | | | | + + + +---------+ + + | | Take 1 tablet by | 12 | 0 | 08/29/19 | | | HYDROcodone-acetamin | mouth every 6 hours | tablet | | 16 | 7 | | ophen (NORCO) 5-325 | as needed for Pain. | | | | | | mg per tablet | | | | | | + + [...] | + +--------+ + + + | MRI LUMBAR SPINE WO | STAT | 08/29/2015 | | Results for this | | CONTRAST | | 2:12 AM | | procedure are in the | | | | PDT | | results section. | + +--------+ + + + | URINALYSIS WITH | STAT | 08/29/2015 | | Results for this | | MICROSCOPIC WITH | | 1:02 AM | | procedure are in the | | CULTURE IF INDICATED | | PDT | | results section. | + +--------+ + + + | CBC WITH | STAT | 08/29/2015 | | Results for this | | DIFFERENTIAL | | 12:34 AM | | procedure are in the | | | | PDT | | results section. | + +--------+ + + + | BASIC METABOLIC | STAT | 08/29/2015 | | Results for this | | PANEL | | 12:34 AM | | procedure are in the | | | | PDT | | results section. | + +--------+ + + + documented in this encounter Results MRI Lumbar Spine wo Contrast (08/29/2015 2:12 AM PDT) + + | Specimen | + + | | + + + + + | Narrative | Performed At | + + + | UNENHANCED MRI LUMBAR SPINE 08/29/2015 1:48 AM CLINICAL HISTORY: | [facility] | | low back pain with urinary incontinence COMPARISON: None | | | available TECHNIQUE: The following 3T MR sequences of the lumbar | | | spine were obtained: 1. Axial and sagittal T1. 2. Axial, | | | sagittal, and coronal T2. 3. Sagittal STIR. FINDINGS: Five non | | | rib-bearing, lumbar type vertebrae are suggested on the coronal | | | sequence. There is leftward lumbar curvature centered at L2. There | | | is central concavity involving the right superior aspect of the T12 | | | vertebral body, with mild underlying marrow edema on the STIR | | | sequence. A small Schmorl's node is present within the inferior T12 | | | endplate, without associated marrow edema. Lumbar vertebral height | | | is maintained, without evidence of additional fracture or | | | spondylolysis. The conus medullaris is unremarkable, terminating at | | | L1-2. Disc desiccation is present throughout the lower thoracic and | | | lumbar spine. Several rounded fluid signal structures are noted | | | posteriorly in the imaged liver, measuring up to 2.7 cm and favoring | | | cysts. Dilation of a side branch of the main pancreatic duct is | | | suggested at the level of the uncinate process. Parapelvic renal | | | cysts are suspected on the left, with the imaged proximal to mid | | | ureter demonstrating a nondilated appearance. There is extensive | | | diverticulosis involving the imaged sigmoid colon. Minimal | | | posterior disc bulges are present at T11-12 and T12-L1, without | | | visible stenosis on provided sagittal images through the region. | | | Mild to moderate disc space narrowing, annular tears, 4 mm | | | retrolisthesis and a generalized posterior disc bulge are present at | | | L1-2, combining with mild to moderate ligamentous and facet | | | hypertrophy to minimally narrow the central canal and neural | | | foramina. A prominent right facet joint effusion and lesser left | | | facet joint effusion are present. Moderate to severe right sided | | | disc space narrowing, Modic endplate hyperintensity, annular tears, 2 | | | mm retrolisthesis and a generalized posterior disc bulge and right | | | lateral disc osteophyte complex are present at L2-3, combining with | | | mild to moderate ligamentous and facet hypertrophy to mildly narrow | | | the central canal and left neural foramen and more moderately narrow | | | the right neural foramen. Disc encroaches on the descending L3 | | | nerve roots within the subarticular recesses, right greater than | | | left. Bilateral facet joint effusions are present. Moderate | | | disc space narrowing, annular tears, mild Modic endplate | | | hyperintensity, minimal anterolisthesis and a generalized posterior | | | disc bulge and left lateral disc osteophyte complex are present at | | | L3-4, combining with mild to moderate ligamentous and facet | | | hypertrophy to mildly narrow the central canal and right neural | | | foramen and more moderately narrow the left neural foramen. There | | | is narrowing of the left subarticular recess, without conclusive | | | encroachment on the descending left L4 nerve root. A small right | | | facet joint effusion is present. Moderate to severe disc space | | | narrowing, mild Modic endplate hyperintensity, annular tears and a | | | minimal posterior disc bulge are present at L4-5, combining with mild | | | to moderate ligamentous and facet hypertrophy to minimally narrow the | | | central canal and neural foramina. There is no visible nerve root | | | encroachment. Trace facet joint effusions are present. Severe | | | disc space narrowing, Modic endplate hyperintensity, annular tears and | | | lateral disc osteophyte complexes are present at L5-S1, combining | | | with mild ligamentous and facet hypertrophy to mildly narrow the | | | neural foramina, although disc/osteophyte approximates the exiting | | | left L5 nerve root beyond its foramen. Trace facet joint effusions | | | are present. IMPRESSION - 1. MILD CONCAVITY OF THE RIGHT ASPECT | | | OF THE SUPERIOR T12 VERTEBRAL ENDPLATE AND MILD ASSOCIATED MARROW | | | EDEMA, UNCERTAIN IN ACUITY. 2. MULTILEVEL DEGENERATIVE DISC | | | DISEASE, SPONDYLOSIS AND MILD SPONDYLOLISTHESIS DETAILED ABOVE, | | | WITH MILD CENTRAL CANAL STENOSIS AND VARIABLE MILD TO MODERATE | | | NEUROFORAMINAL STENOSIS. THERE IS NERVE ROOT ENCROACHMENT AT L2-3 | | | AND L5-S1 INDICATED. 3. DEXTROSCOLIOSIS AND MULTILEVEL FACET | | | ARTHROPATHY. 4. DILATED SIDE BRANCH OF THE MAIN PANCREATIC DUCT | | | WITHIN THE UNCINATE PROCESS, POTENTIALLY REFLECTING INTRADUCTAL | | | PAPILLARY MUCINOUS TUMOR FORMATION. CONSIDER FOLLOW-UP MRCP. 5. | | | PROBABLE HEPATIC AND PARAPELVIC LEFT RENAL CYSTS. 6. | | | EXTENSIVE COLONIC DIVERTICULOSIS. Preliminary results of this | | | study were reported to the ER staff by the [facility] radiologist on | | | August 29, 2015 at 0238 hours. Dictated and Signed by: Joseph Gomez | | | Electronically signed: 08/29/2015 8:43 AM | | + + + + + | Procedure Note | + + | Sushil, Rad Results In - 08/29/2015 8:46 AM PDT UNENHANCED MRI LUMBAR SPINE 08/29/2015 | | 1:48 AMCLINICAL HISTORY: low back pain with urinary incontinence COMPARISON: None | | availableTECHNIQUE: The following 3T MR sequences of the lumbar spine were obtained:1. | | Axial and sagittal T1.2. Axial, sagittal, and coronal T2.3. Sagittal STIR.FINDINGS: | | Five non rib-bearing, lumbar type vertebrae are suggested on thecoronal sequence. There | | is leftward lumbar curvature centered at L2. There iscentral concavity involving the | | right superior aspect of the T12 vertebral body,with mild underlying marrow edema on the | | STIR sequence. A small Schmorl's nodeis present within the inferior T12 endplate, | | without associated marrow edema. Lumbar vertebral height is maintained, without evidence | | of additional fractureor spondylolysis. The conus medullaris is unremarkable, | | terminating at L1-2. Disc desiccation is present throughout the lower thoracic and | | lumbar spine. Several rounded fluid signal structures are noted posteriorly in the | | imagedliver, measuring up to 2.7 cm and favoring cysts. Dilation of a side branch ofthe | | main pancreatic duct is suggested at the level of the uncinate process. Parapelvic | | renal cysts are suspected on the left, with the imaged proximal tomid ureter | | demonstrating a nondilated appearance. There is extensivediverticulosis involving the | | imaged sigmoid colon.Minimal posterior disc bulges are present at T11-12 and T12-L1, | | without visiblestenosis on provided sagittal images through the region.Mild to moderate | | disc space narrowing, annular tears, 4 mm retrolisthesis and ageneralized posterior disc | | bulge are present at L1-2, combining with mild tomoderate ligamentous and facet | | hypertrophy to minimally narrow the central [place] neural foramina. A prominent right | | facet joint effusion and lesser leftfacet joint effusion are present.Moderate to severe | | right sided disc space narrowing, Modic endplatehyperintensity, annular tears, 2 mm | | retrolisthesis and a generalized posteriordisc bulge and right lateral disc osteophyte | | complex are present at L2-3,combining with mild to moderate ligamentous and facet | | hypertrophy to mildlynarrow the central canal and left neural foramen and more | | moderately narrow theright neural foramen. Disc encroaches on the descending L3 nerve | | roots withinthe subarticular recesses, right greater than left. Bilateral facet | | jointeffusions are present.Moderate disc space narrowing, annular tears, mild Modic | | endplatehyperintensity, minimal anterolisthesis and a generalized posterior disc | | bulgeand left lateral disc osteophyte complex are present at L3-4, combining withmild to | | moderate ligamentous and facet hypertrophy to mildly narrow the centralcanal and right | | neural foramen and more moderately narrow the left neuralforamen. There is narrowing of | | the left subarticular recess, without conclusiveencroachment on the descending left L4 | | nerve root. A small right facet jointeffusion is present.Moderate to severe disc space | | narrowing, mild Modic endplate hyperintensity,annular tears and a minimal posterior disc | | bulge are present at L4-5, combiningwith mild to moderate ligamentous and facet | | hypertrophy to minimally narrow thecentral canal and neural foramina. There is no | | visible nerve root encroachment. Trace facet joint effusions are present.Severe disc | | space narrowing, Modic endplate hyperintensity, annular tears andlateral disc osteophyte | | complexes are present at L5-S1, combining with mildligamentous and facet hypertrophy to | | mildly narrow the neural foramina, althoughdisc/osteophyte approximates the exiting | | left L5 nerve root beyond its foramen. Trace facet joint effusions are | | present.IMPRESSION -1. MILD CONCAVITY OF THE RIGHT ASPECT OF THE SUPERIOR T12 VERTEBRAL | | ENDPLATEAND MILD ASSOCIATED MARROW EDEMA, UNCERTAIN IN ACUITY.2. MULTILEVEL | | DEGENERATIVE DISC DISEASE, SPONDYLOSIS AND MILD SPONDYLOLISTHESISAS DETAILED ABOVE, WITH | | MILD CENTRAL CANAL STENOSIS AND VARIABLE MILD TOMODERATE NEUROFORAMINAL STENOSIS. | | THERE IS NERVE ROOT ENCROACHMENT AT L2-3 ANDL5-S1 INDICATED.3. DEXTROSCOLIOSIS AND | | MULTILEVEL FACET ARTHROPATHY.4. DILATED SIDE BRANCH OF THE MAIN PANCREATIC DUCT WITHIN | | THE UNCINATE PROCESS,POTENTIALLY REFLECTING INTRADUCTAL PAPILLARY MUCINOUS TUMOR | | FORMATION. CONSIDERFOLLOW-UP MRCP.5. PROBABLE HEPATIC AND PARAPELVIC LEFT RENAL | | CYSTS.6. EXTENSIVE COLONIC DIVERTICULOSIS.Preliminary results of this study were | | [facility]238 | | hours.Dictated and Signed by: Joseph Gomez MD Electronically signed: 08/29/2015 8:43 AM | |annular tears and a minimal posterior disc bulge are present at L4-5, combining | |with mild to moderate ligamentous and facet hypertrophy to minimally narrow the | |central canal and neural foramina. There is no visible nerve root encroachment. | | Trace facet joint effusions are present. | | | |Severe disc space narrowing, Modic endplate hyperintensity, annular tears and | |lateral disc osteophyte complexes are present at L5-S1, combining with mild | |ligamentous and facet hypertrophy to mildly narrow the neural foramina, although | |disc/osteophyte approximates the exiting left L5 nerve root beyond its foramen. | |Trace facet joint effusions are present. | | | |IMPRESSION - | |1. MILD CONCAVITY OF THE RIGHT ASPECT OF THE SUPERIOR T12 VERTEBRAL ENDPLATE | |AND MILD ASSOCIATED MARROW EDEMA, UNCERTAIN IN ACUITY. | | | |2. MULTILEVEL DEGENERATIVE DISC DISEASE, SPONDYLOSIS AND MILD SPONDYLOLISTHESIS | | DETAILED ABOVE, WITH MILD CENTRAL CANAL STENOSIS AND VARIABLE MILD TO | |MODERATE NEUROFORAMINAL STENOSIS. THERE IS NERVE ROOT ENCROACHMENT AT L2-3 AND | |L5-S1 INDICATED. | | | |3. DEXTROSCOLIOSIS AND MULTILEVEL FACET ARTHROPATHY. | | | |4. DILATED SIDE BRANCH OF THE MAIN PANCREATIC DUCT WITHIN THE UNCINATE PROCESS, | |POTENTIALLY REFLECTING INTRADUCTAL PAPILLARY MUCINOUS TUMOR FORMATION. CONSIDER | |FOLLOW-UP MRCP. | | | |5. PROBABLE HEPATIC AND PARAPELVIC LEFT RENAL CYSTS. | | | |6. EXTENSIVE COLONIC DIVERTICULOSIS. | | | |Preliminary results of this study were reported to the ER staff by the [facility] | |radiologist on August 29, 2015 at 0238 hours. | | | |Dictated and Signed by: Joseph Gomez MD | | Electronically signed: 08/29/2015 8:43 AM | + + + +---------+ + + | Performing | Address | City/State/Zipcode | Phone Number | | Organization | | | | + +---------+ + + | [facility] | | | | + +---------+ + + Urinalysis with Microscopic with Culture if Indicated (08/29/2015 1:02 AM PDT) + + + + + + | Component | Value | Ref Range | Performed | Pathologist | | | | | At | Signature | + + + + + + | Color | Yellow | Light Yellow, | [facility] | | | | | Yellow, Straw | [facility] | | | | | | [facility] | | | | | | C[facility] - | | | | | | LABORATORY | | + + + + + + | Clarity | Clear | Clear | [facility] | | | | | | [facility] | | | | | | [facility] | | | | | | C[facility] - | | | | | | LABORATORY | | + + + + + + | pH, Urine | 6.0 | 5.0 - 8.0 | [facility] | | | | | | [facility] | | | | | | [facility] | | | | | | C[facility] - | | | | | | LABORATORY | | + + + + + + | Specific | 1.011 | 1.001 - 1.030 | [facility] | | | [place] | | | [facility] | | | | | | MED[facility] | | | | | | CENTER - | | | | | | LABORATORY | | + + + + + + | Protein, | Negative | Negative | [facility] | | | Urine | | | [facility] | | | | | | MED[facility] | | | | | | CENTER - | | | | | | LABORATORY | | + + + + + + | Blood, | Negative | Negative | [facility] | | | Urine | | | [facility] | | | | | | MED[facility] | | | | | | CENTER - | | | | | | LABORATORY | | + + + + + + | Glucose, | Negative | Negative | [facility] | | | Urine | | | [facility] | | | | | | MEDICAL | | | | | | CENTER - | | | | | | LABORATORY | | + + + + + + | Ketones, | Trace (A) | Negative | [facility] | | | Urine | | | [facility] | | | | | | MED[facility] | | | | | | CENTER - | | | | | | LABORATORY | | + + + + + + | Bilirubin, | Negative | Negative | [facility] | | | Urine | | | [facility] | | | | | | [facility] | | | | | | CENTER - | | | | | | LABORATORY | | + + + + + + | Nitrite, | Positive (A) | Negative | [facility] | | | Urine | | | [facility] | | | | | | MED[facility] | | | | | | CENTER - | | | | | | LABORATORY | | + + + + + + | Leukocyte | Trace (A) | Negative | [facility] | | | Esterase, | | | [facility] | | | Urine | | | MEDICAL | | | | | | CENTER - | | | | | | LABORATORY | | + + + + + + | Urobilinoge | Negative | 0.2 mg/dL, 1.0 | [facility] | | | n, Urine | | mg/dL, Negative | [facility] | | | | | | MEDICAL | | | | | | CENTER - | | | | | | LABORATORY | | + + + + + + | WBC UA | 2-5 (A) | 0 - 2 /HPF | [facility] | | | | | | [facility] | | | | | | [facility]ICAL | | | | | | CENTER - | | | | | | LABORATORY | | + + + + + + | RBC UA | 0-2 | 0 - 2 /HPF | [facility] | | | | | | [facility] | | | | | | MEDICAL | | | | | | CENTER - | | | | | | LABORATORY | | + + + + + + | SQUAMOUS | 0-2 | 0 - 2 /LPF | [facility] | | | EPITHELIAL | | | [facility] | | | UA | | | MEDICAL | | | | | | CENTER - | | | | | | LABORATORY | | + + + + + + | BACTERIA UA | 1+ (A) | Negative /HPF | [facility] | | | | | | [facility] | | | | | | [facility] | | | | | | CENTER - | | | | | | LABORATORY | | + + + + + + | MUCUS UA | Present (A) | Negative /LPF | [facility] | | | | | | [facility] | | | | | | [facility] | | | | | | CENTER - | | | | | | LABORATORY | | + + + + + + | URINE | Urine Culture Not | | [facility] | | | COMMENT | Indicated | | [facility] | | | | | | [facility] | | | | | | CENTER - | | | | | | LABORATORY | | + + + + + + + + | Specimen | + + | Urine - Urine | | specimen (specimen) | + + + + + + + | Performing | Address | City/State/Zipcode | Phone Number | | Organization | | | | + + + + + | [facility] | [address] | [place] | [phone] | | [facility] | | [address] | | | - LABORATORY | | | | + + + + + CBC with Differential (08/29/2015 12:34 AM PDT) + +---------+ + + + | Component | Value | Ref Range | Performed | Pathologist | | | | | At | Signature | + +---------+ + + + | WBC | 7.5 | 4.0 - 11.0 K/uL | [facility] | | | | | | [facility] | | | | | [facility] | | | | | | C[facility] - | | | | | | LABORATORY | | + +---------+ + + + | RBC | 4.25 | 3.70 - 5.20 | [facility] | | | | | M/uL | [facility] | | | | | | [facility] | | | | | | CENTER - | | | | | | LABORATORY | | + +---------+ + + + | Hemoglobin | 13.1 | 11.5 - 16.0 | [facility] | | | | | g/dL | [facility] | | | | | | MEDICAL | | | | | | CENTER - | | | | | | LABORATORY | | + +---------+ + + + | Hematocrit | 39.6 | 34.0 - 47.0 % | [facility] | | | | | | [facility] | | | | | | [facility] | | | | | | CENTER - | | | | | | LABORATORY | | + +---------+ + + + | MCV | 93.2 | 83.0 - 101.0 fL | [facility] | | | | | | [facility] | | | | | | [facility] | | | | | | CENTER - | | | | | | LABORATORY | | + +---------+ + + + | MCH | 30.8 | 28.0 - 35.0 pg | [facility] | | | | | | [facility] | | | | | | [facility] | | | | | | C[facility] - | | | | | | LABORATORY | | + +---------+ + + + | MCHC | 33.0 | 32.0 - 36.0 | [facility] | | | | | g/dL | [facility] | | | | | | MED[facility] | | | | | | CENTER - | | | | | | LABORATORY | | + +---------+ + + + | RDW-CV | 13.8 | <15.0 % | [facility] | | | | | | [facility] | | | | | | [facility] | | | | | | CENTER - | | | | | | LABORATORY | | + +---------+ + + + | Platelet | 162 | 140 - 440 K/uL | [facility] | | | Count | | | [facility] | | | | | | [facility] | | | | | | CENTER - | | | | | | LABORATORY | | + +---------+ + + + | MPV | 10.6 | fL | [facility] | | | | | | [facility] | | | | | | MED[facility] | | | | | | CENTER - | | | | | | LABORATORY | | + +---------+ + + + | % | 64.8 | 45.0 - 82.0 % | [facility] | | | Neutrophils | | | [facility] | | | | | | MEDICAL | | | | | | CENTER - | | | | | | LABORATORY | | + +---------+ + + + | % | 25.0 | 20.0 - 45.0 % | [facility] | | | Lymphocytes | | | [facility] | | | | | | MED[facility] | | | | | | CENTER - | | | | | | LABORATORY | | + +---------+ + + + | % Monocytes | 7.3 | 4.0 - 12.0 % | [facility] | | | | | | [facility] | | | | | | [facility] | | | | | | CENTER - | | | | | | LABORATORY | | + +---------+ + + + | % | 1.8 | 0.0 - 5.0 % | [facility] | | | Eosinophils | | | [facility] | | | | | | MEDICAL | | | | | | CENTER - | | | | | | LABORATORY | | + +---------+ + + + | % Basophils | 1.1 (H) | 0.0 - 1.0 % | [facility] | | | | | | [facility] | | | | | | MED[facility] | | | | | | CENTER - | | | | | | LABORATORY | | + +---------+ + + + | Absolute | 4.90 | 1.80 - 8.50 | [facility] | | | Neutrophils | | K/uL | [facility] | | | | | | [facility] | | | | | | CENTER - | | | | | | LABORATORY | | + +---------+ + + + | Absolute | 1.90 | 0.60 - 3.20 | [facility] | | | Lymphocytes | | K/uL | [facility] | | | | | | [facility] | | | | | | CENTER - | | | | | | LABORATORY | | + +---------+ + + + | Absolute | 0.50 | 0.00 - 1.00 | [facility] | | | Monocytes | | K/uL | [facility] | | | | | | [facility] | | | | | | CENTER - | | | | | | LABORATORY | | + +---------+ + + + | Absolute | 0.10 | 0.00 - 0.40 | [facility] | | | Eosinophils | | K/uL | [facility] | | | | | | [facility] | | | | | | CENTER - | | | | | | LABORATORY | | + +---------+ + + + | Absolute | 0.10 | 0.00 - 0.10 | [facility] | | | Basophils | | K/uL | [facility] | | | | | | [facility] | | | | | | CENTER - | | | | | | LABORATORY | | + +---------+ + + + + + | Specimen | + + | Blood | + + + + + + + | Performing | Address | City/State/Zipcode | Phone Number | | Organization | | | | + + + + + | [facility] | [address] | [place] | [phone] | | [facility] | | [address] | | | - LABORATORY | | | | + + + + + Basic Metabolic Panel (08/29/2015 12:34 AM PDT) + + + + + + | Component | Value | Ref Range | Performed | Pathologist | | | | | At | Signature | + + + + + + | Na | 141 | 136 - 149 | [facility] | | | | | mmol/L | [facility] | | | | | | MED[facility] | | | | | | CENTER - | | | | | | LABORATORY | | + + + + + + | K | 3.3 (L) | 3.5 - 5.1 | [facility] | | | | | mmol/L | [facility] | | | | | | MEDICAL | | | | | | CENTER - | | | | | | LABORATORY | | + + + + + + | Cl | 110 (H) | 98 - 109 mmol/L | [facility] | | | | | | [facility] | | | | | | MEDICAL | | | | | | CENTER - | | | | | | LABORATORY | | + + + + + + | CO2 | 25 | 24 - 31 mmol/L | [facility] | | | | | | [facility] | | | | | | MEDICAL | | | | | | CENTER - | | | | | | LABORATORY | | + + + + + + | Anion Gap | 6 | 3 - 16 mmol/L | [facility] | | | | | | [facility] | | | | | | MEDICAL | | | | | | CENTER - | | | | | | LABORATORY | | + + + + + + | Glucose | 103 | 70 - 109 mg/dL | [facility] | | | | | | [facility] | | | | | | [facility] | | | | | | CENTER - | | | | | | LABORATORY | | + + + + + + | BUN | 20 (H) | 7 - 18 mg/dL | [facility] | | | | | | [facility] | | | | | | MEDICAL | | | | | | CENTER - | | | | | | LABORATORY | | + + + + + + | Creatinine | 0.84 | 0.60 - 1.30 | [facility] | | | | | mg/dL | [facility] | | | | | | MEDICAL | | | | | | CENTER - | | | | | | LABORATORY | | + + + + + + | eGFR if not | >60Comment: GLOMERULAR | >=60 | [facility] | | | | FILTRATION | mL/min/1.73m2 | [facility] | | | [facility] | RATE,ESTIMATED | | MEDICAL | | | | mL/min/1.62d0Luer than | | CENTER - | | | | 60 Chronic kidney | | LABORATORY | | | | disease,if found over a | | | | | | 3-month period.Less than | | | | | | 15 Kidney failureFor | | | | | | | | | | | | Americans,multiply the | | | | | | calculated GFR by 1.21. | | | | | | | | | | + + + + + + | Calcium | 8.2 (L) | 8.3 - 10.5 | [facility] | | | | | mg/dL | [facility] | | | | | | MEDICAL | | | | | | CENTER - | | | | | | LABORATORY | | + + + + + + | BUN/Creatin | 23.8 | | [facility] | | | ine Ratio | | | [facility] | | | | | | MEDICAL | | | | | | CENTER - | | | | | | LABORATORY | | + + + + + + + + | Specimen | + + | Blood | + + + + + + + | Performing | Address | City/State/Zipcode | Phone Number | | Organization | | | | + + + + + | [facility] | [address] | [place] | [phone] | | [facility] | | [address] | | | - LABORATORY | | | | + + + + + documented in this encounter Visit Diagnoses + + | Diagnosis | + + | Intermittent urinary incontinence - Primary Unspecified urinary incontinence | + + | Acute midline low back pain without sciatica | + + | Paresthesias Disturbance of skin sensation | + + | Diarrhea | + + documented in this encounter Administered Medications + + + +-------+------+------+ | Medication Order | MAR | Action | Dose | Rate | Site | | | Action | Date | | | | + + + +-------+------+------+ | cyclobenzaprine (FLEXARIL) | Dispense | 08/29/19 | 10 mg | | | | tablet (ER Prepack) 10 mg 10 mg, | to Home | 16 3:16 | | | | | Oral, ONCE, [facility] 08/29/15 at 0255, | | AM PDT | | | | | For 1 dose, Take 1 tablet every | | | | | | | 8 hours prn muscle spasm | | | | | | | Dispense for home use., | | | | | | + + + +-------+------+------+ +---+---+ | | | +---+---+ + +-------+ +------+---+---+ | diazepam (VALIUM) injection 5 | Given | 08/29/19 | 5 mg | | | | mg 5 mg, Intravenous, ONCE, Wed | | 16 1:19 | | | | | 08/29/15 at 0100, For 1 dose | | AM PDT | | | | + +-------+ +------+---+---+ +---+---+ | | | +---+---+ + + + + +---+---+ | HYDROcodone-acetaminophen | Dispense | 08/29/19 | 1 tablet | | | | (NORCO) 5-325 mg per tablet (ER | to Home | 16 3:16 | | | | | Prepack) 1 tablet 1 tablet, | | AM PDT | | | | | Oral, ONCE, [facility] 08/29/15 at 0255, | | | | | | | For 1 dose, 1-2 tablets every 6 | | | | | | | hours prn pain, | | | | | | + + + + +---+---+ +---+---+ | | | +---+---+ documented in this encounter
--- OUTSIDE RECORDS SUMMARY | ~2018-12-28 | XMS | Encounter Summary ---
Demographics + + + | Address | [address] | | | [place] [address] | + + + | Home Phone | | + + + | Preferred Language | Unknown | + + + | Marital Status | | + + + | Mandaen Affiliation | Unknown | + + + | Race | Unknown | + + + | Ethnic Group | Unknown | + + + Author + + + | Author | [facility] | | | and [place] | + + + | Organization | [facility] | | | and [...] Team Providers + +------+ + | Care Certified Orthotist Name | Role | Phone | + +------+ + PCP | Unavailable | + +------+ + Encounter Details +--------+ + + + + | Date | Type | Department | Care Team | Description | +--------+ + + + + | 07/26/ | Hospital | [facility] | Jas Buchanan, | | | 2008 | Encounter | HOSPITAL BUSINESS | [address] [place] | | | | | OFFICE [address] | [place] | | | | | [place] | [address] | | | | | [address] | [phone] | | | | | [phone] | | | +--------+ + + + [...]
--- OUTSIDE RECORDS SUMMARY | ~2018-12-28 | XMS | Encounter Summary ---
Demographics + + + | Address | [address] | | | [place] [address] | + + + | Home Phone | | + + + | Preferred Language | Unknown | + + + | Marital Status | | + + + | Bahai Affiliation | Unknown | + + + | Race | Unknown | + + + | Ethnic Group | Unknown | + + + Author + + + | Author | [facility] | | | and [place] | + + + | Organization | [facility] | | | and Joseana [...] Team Providers + +------+ + | Care Pipelaying Fitter Name | Role | Phone | + +------+ + PCP | Unavailable | + +------+ + Encounter Details +--------+ + + + + | Date | Type | Department | Care Team | Description | +--------+ + + + + | 11/25/ | Hospital | [facility] | Jas Buchanan, | | | 2009 | Encounter | HOSPITAL LABORATORY | [address] | | | | | [address] [place] | [place] | | | | | [place] | [address] | | | | | [address] | [phone] | | | | | [phone] | | | +--------+ + + + [...]
--- OUTSIDE RECORDS SUMMARY | ~2018-12-28 | XMS | Encounter Summary ---
Demographics + + + | Address | [address] | | | [place] [address] | + + + | Home Phone | | + + + | Preferred Language | Unknown | + + + | Marital Status | | + + + | Alevism Affiliation | Unknown | + + + | Race | Unknown | + + + | Ethnic Group | Unknown | + + + Author + + + | Author | [facility] | | | and [place] | + + + | Organization | [facility] | | | and Joseana [...] Team Providers + +------+ + | Care Self Storage Manager Name | Role | Phone | [...] | | [address] [place] | [facility], [place] | | | | | [place], [place] | [address] | | | | | [address] | [phone] | | | | | [phone] | | | +--------+ + + + [...]
--- OUTSIDE RECORDS SUMMARY | ~2018-12-28 | XMS | Encounter Summary ---
Demographics + + + | Address | [address] | | | [place] [address] | + + + | Home Phone [...] | Organization | [facility] | | | and [...] Team Providers + +------+ + | Care Helper Animal Laboratory Name | Role | Phone | + +------+ + PCP | Unavailable | + +------+ + Encounter Details +--------+ + + + + | Date | Type | Department | Care Team | Description | +--------+ + + + + | 04/13/ | Hospital | [facility] | | | | 1997 | Encounter | MED CTR MP INTRA OP | | | | | | [address] | | | | | | [place] | | | | | | [address] | | | | | | [phone] | | | +--------+ + + + [...]
--- OUTSIDE RECORDS SUMMARY | ~2018-12-28 | XMS | Encounter Summary ---
Demographics + + + | Address | [address] | | | [place] [address] | + + + | Home Phone | | + + + | Preferred Language | Unknown | + + + | Marital Status | | + + + | Islam Affiliation | Unknown | + + + | Race | Unknown | + + + | Ethnic Group | Unknown | + + + Author + + + | Author | [facility] | | | and [place] | + + + | Organization | [facility] | | | and [place] [...] Team Providers + +------+ + | Care Journeyman Electrician Name | Role | Phone | + +------+ + PCP | Unavailable | + +------+ + Encounter Details +--------+ + + + + | Date | Type | Department | Care Team | Description | +--------+ + + + + | 11/05/ | Hospital | [facility] | Luis Hyde, | | | 2009 - | Encounter | MED CTR GENERIC IP | MD [address] [facility] | | | | | CONV DEPT [address] | [place] | | | 11/08/ | | [place], | [address] | | | 2009 | | [place] [address] | | | | | | [phone] | | | +--------+ + + + [...]
--- OUTSIDE RECORDS SUMMARY | ~2018-12-28 | XMS | Encounter Summary ---
Demographics + + + | Address | [address] | | | [place] [address] | + + + | Home Phone | | + + + | Preferred Language | Unknown | + + + | Marital Status | | + + + | Alevism Affiliation | Unknown | + + + | Race | Unknown | + + + | Ethnic Group | Unknown | + + + Author + + + | Author | [facility] | | | and [place] | + + + | Organization | [facility] [...] Team Providers + +------+ + | Care Intelligence Intern Name | Role | Phone | + [...] + + | 08/28/ | Emergency | [facility] | Wander Navarro, | Intermittent urinary | | 2016 | | MED CTR EMERGENCY | MD [address] | incontinence | | | | CENTER [address] | [facility] [place] | (Primary Dx); Acute | | | | [place], [place] | [place] [address] | midline low back | | | | [address] | [phone] | pain without | | | | [phone] | | sciatica; | | | | [...] Care Everywhere.BACK PAIN (ACUT E OR CHRONIC) (GUINEAN)documented in this encounter Medications at Time of [...] reported to the ER staff by the [facility] radiologist on | | | August [...] [facility] 2015 at 0238 [...] reported to the ER staff by the [facility] | |radiologist on August 29, 2015 [...] - 1.030 | [facility] | | | [place] | | | [facility] | | [...] | | | | | | [facility] | | | | | | MEDICAL [...] [address] | [place] | [phone] | | [facility] | | [address] | | | - LABORATORY | | [...] | Eosinophils | | K/uL | [facility] | [...] + | [facility] | [address] | [place] | [phone] | | [facility] | | [address] | | | - LABORATORY | | [...] | mL/min/1.73m2 | [facility] | | | MAURITIAN | RATE,ESTIMATED | | MEDICAL | | | | mL/min/1.26z2Hsyp than | | CENTER - | | [...] [address] | [place] | [phone] | | [facility] | | [address] | | | - LABORATORY | | [...] | | | | | Oral, ONCE, [facility] 08/29/15 at 0255, | | AM [...] | | | | | Oral, ONCE, [facility] 08/29/15 at 0255, | | | | | | | For 1 dose, 1-2 tablets every 6 | | | | | | | hours prn pain, | | | | | | + + + + +---+---+ +---+---+ | | | +---+---+ documented in this encounter
--- OUTSIDE RECORDS SUMMARY | ~2018-12-28 | XMS | Encounter Summary ---
Demographics + + + | Address | [address] | | | [place] [address] | + + + | Home Phone | | + + + | Preferred Language | Unknown | + + + | Marital Status | | + + + | Episcopal Affiliation | Unknown | + + + | Race | Unknown | + + + | Ethnic Group | Unknown | + + + Author + + + | Author | [facility] | | | and [place] | + + + | Organization | [facility] | | | and Joseana [...] Team Providers + +------+ + | Care Gynecology Teacher Name | Role | Phone | + +------+ + PCP | Unavailable | + +------+ + Encounter Details +--------+ + + + + | Date | Type | Department | Care Team | Description | +--------+ + + + + | 07/26/ | Hospital | [facility] | Jas Buchanan, | | | 2008 | Encounter | HOSPITAL BUSINESS | [address] [place] | | | | | OFFICE [address] | [place] | | | | | [place] | [address] | | | | | [address] | [phone] | | | | | [phone] | | | +--------+ + + + [...]
--- OUTSIDE RECORDS SUMMARY | ~2018-12-28 | XMS | Clinical Summary ---
Demographics + + + | Address | [address] | | | [place] [address] | + + + | Home Phone | | + + + | Preferred Language | Unknown | + + + | Marital Status | | + + + | Quaker Affiliation | Unknown | + + + | Race | Unknown | + + + | Ethnic Group | Unknown | + + + Author + + + | Author | [facility] | | | and [place] | + + + | Organization | [facility] | | | and [place] | [...] Team Providers + +------+ + | Care Maintenance Mechanic Engine Name | Role | Phone | + +------+ + | Adolph Balderas MD | PCP | | + +------+ + Allergies + + + + + + | Active Allergy | Reactions | Severity | Noted | Comments | | | | | Date | | + + + + + + | Sulfa Antibiotics | | | 08/29/19 | | | | | | 16 | | + + + + + + Medications No known medications Active Problems + + + | Problem | Noted Date | + + + | Essential (primary) hypertension | 05/17/2015 | + + + | Chest pain | 01/31/2015 | + + + + + | Overview: Last Assessment & Plan: Atypical chest pain84 yr | | old female with no other significant risk factorsAbnormal ekgEcho | | pending- will do prior to next visitStress MPI - no | | ischemiaContinue ASA, fish oil capsulesDiscussed about CAD and | | presentations, symptoms- no chest pain since last visitShe will | | maintain BP log at homeShe will follow up in 6 months or | | earlyEcho prior to next visit. | |Discussed about CAD and presentations, symptoms- no chest pain since last visit | |She will maintain BP log at home | |She will follow up in 6 months or early | |Echo prior to next visit. | + + + +---+ | ANKLE PAIN, LEFT | | + +---+ | KNEE PAIN, RIGHT, CHRONIC | | + +---+ | ARTHRITIS, RIGHT KNEE | | + +---+ Immunizations + + + + | Name | Administration Dates | Next Due | + + + + | INFLUENZA PF | 12/10/2011 | | | TRIVALENT(PED/ADOL/A | | | | DULT) PSKT | | | + + + + | TDAP, (ADOL/ADULT) | 12/10/2011 | | + + + + Social History + [...] recent travel history available. | + + Last Filed Vital Signs + + + [...] | | + + + + + Plan of Treatment + + + + + | Health Maintenance | Due Date | Last Done | Comments | + + + + + | Vaccine: Zoster (1 | | | | | of 2) | 1 | | | + + + + + | Vaccine: | | | | | Pneumococcal 65+ (1 | 6 | | | | of 2 - PCV13) | | | | + + + + + | Vaccine: Influenza | | 12/10/2011 | | | (#1) | 9 | | | + + + + + | Vaccine: | | 12/10/2011 | | | Dtap/Tdap/Td (2 - | 2 | | | | Td) | | | | + + + + + Results Not on filefrom Last 3 Months Insurance + +--------+ +--------+ +---------+--------+ | Payer | Benefi | Subscriber | Effect | Phone | Address | Type | | | t Plan | ID | chantelle | | | | | | / | | Dates | | | | | | Group | | | | | | + +--------+ +--------+ +---------+--------+ | MEDICARE | MEDICA | [id number] | 04/15/18 | [phone] | | Medica | | | RE | | 96-Pre | 5 | | re | | | PART A | | sent | | | | | | AND B | | | | | | + +--------+ +--------+ +---------+--------+ | AETNA SENIOR | AETNA | [id number] | | [phone] | | Indemn | | SUPPLEMENTAL INS | LIFE | | 016-Pr | 7 | | ity | | | INS CO | | esent | | | | | | MDCR | | | | | | | | SUPPL | | | | | | + +--------+ +--------+ +---------+--------+ + +--------+ +--------+ + + | Guarantor Name | Accoun | Relation to | Date | Phone | Billing Address | | | t Type | Patient | of | | | | | | | | | | + +--------+ +--------+ + + | Severe | Person | Self | [birth year] | [address] | | [place] | al/[place] | | 1931 | [phone] | [address] [place] | | [place] | [place] | | | [address] (Home) | [phone] | + +--------+ +--------+ + + Advance Directives + + + + + | Type | Date Recorded | Patient | Explanation | | | | Shade Cloth Finisher | | + + + + + | Power of | | | | | Verification Clerk | | | | + + + + + | Advance | | | | | Directive | | | | + + + + +
--- OUTSIDE RECORDS SUMMARY | ~2018-12-28 | XMS | Clinical Summary ---
Demographics + + + | Address | [address] | | | [place] [address] | + + + | Home Phone | | + + + | Preferred Language | Unknown | + + + | Marital Status | | + + + | Buddhist Affiliation | Unknown | + + + | Race | Unknown | + + + | Ethnic Group | Unknown | + + + Author + + + | Author | [facility] (Historical as of | | | 10-01-18) | + + + | Organization | [facility] (Historical as of | | | 10-01-18) | + + + | Address | Unknown | + + + | Phone | Unavailable | + + + Support + + +---------+ + | Name | Relationship | Address | Phone | + + +---------+ + | Nael Smalls | ECON | Unknown | | + + +---------+ + | Message,Detailed | ECON | Unknown | | + + +---------+ + Care Team Providers + +------+ + | Care Food Service Sales Representatives Name | Role | Phone | + +------+ + | Adolph Balderas MD | PP | | + +------+ + Allergies + + + + + + | Active Allergy | Reactions | Severity | Noted | Comments | | | | | Date | | + + + + + + | Sulfa Antibiotics | Other (See Comments) | Medium | 02/01/20 | unknown | | | | | 15 | | + + + + + + Current Medications + + +-------+---------+------+------+-------+ | Prescription | Sig. | Disp. | Refills | Star | End | Statu | | | | | | t | Date | s | | | | | | Date | | | + + +-------+---------+------+------+-------+ | aspirin EC 325 MG | Take 325 mg by mouth | | | | | Activ | | EC tablet | daily with | | | | | e | | | breakfast. | | | | | | + + +-------+---------+------+------+-------+ | Multiple | Take 1 tablet by | | | | | Activ | | Vitamins-Minerals | mouth daily. | | | | | e | | (HAIR/SKIN/NAILS PO) | | | | | | | + + +-------+---------+------+------+-------+ | Multiple | Take 1 tablet by | | | | | Activ | | Vitamins-Minerals | mouth daily. | | | | | e | | (MULTIVITAMIN WITH | | | | | | | | MINERALS) tablet | | | | | | | + + +-------+---------+------+------+-------+ | fish oil omega-3 | Take 1 g by mouth | | | | | Activ | | fatty acids 1000 MG | daily. | | | | | e | | capsule | | | | | | | + + +-------+---------+------+------+-------+ | ascorbic acid | Take 1,000 mg by | | | | | Activ | | (VITAMIN C) 1000 MG | mouth daily. | | | | | e | | tablet | | | | | | | + + +-------+---------+------+------+-------+ Active Problems + + + | Problem | Noted Date | + + + | Essential hypertension | 05/17/2015 | + + + | Chest pain | 01/31/2015 | + + + + + | Last Assessment & Plan: Atypical chest pain84 yr old female | | with no other significant risk factorsAbnormal ekgEcho pending- | | will do prior to next visitStress MPI - no ischemiaContinue ASA, | | fish oil capsulesDiscussed about CAD and presentations, symptoms- | | no chest pain since last visitShe will maintain BP log at | | homeShe will follow up in 6 months or earlyEcho prior to next | | visit. | |She will maintain BP log at home | |She will follow up in 6 months or early | |Echo prior to next visit. | + + Social History + +-------+ +--------+------+ [...] + +---------+ + | Alcohol Use | Drinks/We | oz/Week | Comments | | | ek | | | + + +---------+ + | No | 0 | 0.0 | | | | Standard | | | | | drinks or | | | | | | | | | | equivalen | | | | | t | | | + + +---------+ + + + + | Sex Assigned at | Date Recorded | | | | + + + | Not on file | | + + + Last Filed Vital Signs + + + + | Vital Sign | Reading | Time Taken | + + + + | Blood Pressure | 136/70 | 05/16/2015 12:17 PM PDT | + + + + | Pulse | 68 | 05/16/2015 12:17 PM PDT | + + + + | Temperature | - | - | + + + + | Respiratory Rate | 20 | 05/16/2015 12:17 PM PDT | + + + + | Oxygen Saturation | 95% | 05/16/2015 12:17 PM PDT | + + + + | Inhaled Oxygen | - | - | | Concentration | | | + + + + | Weight | 71.1 kg (156 lb 12.8 | 05/16/2015 12:17 PM PDT | | | oz) | | + + + + | Height | 167.6 cm (5' 6") | 05/16/2015 12:17 PM PDT | + + + + | Body Mass Index | 25.31 | 05/16/2015 12:17 PM PDT | + + + + Plan of Treatment + + + + + | Health Maintenance | Due Date | Last Done | Comments | + + + + + | Vaccine: | | | | | Dtap/Tdap/Td (1 - | 0 | | | | Tdap) | | | | + + + + + | Vaccine: Zoster (1 | | | | | of 2) | 1 | | | + + + + + | DEXA SCAN SCREENING | | | | | | 6 | | | + + + + + | Vaccine: | | | | | Pneumococcal 65+ | 6 | | | | Low/Medium Risk (1 | | | | | of 2 - PCV13) | | | | + + + + + | Vaccine: Influenza | | | | | (#1) | 9 | | | + + + + + Results Not on filefrom Last 3 Months Insurance + +--------+ +------+-------+ + | Payer | Benefi | Subscriber | Type | Phone | Address | | | t Plan | ID | | | | | | / | | | | | | | Group | | | | | + +--------+ +------+-------+ + | MEDICARE | MEDICA | [id number] | | | [address] | | | RE | | | | [place] [address] | | | IP-OP | | | | | + +--------+ +------+-------+ + | AETNA | AETNA | [id number] | | | | | | GENERI | | | | | | | C | | | | | + +--------+ +------+-------+ + + +--------+ +--------+ + + | Guarantor Name | Accoun | Relation to | Date | Phone | Billing Address | | | t Type | Patient | of | | | | | | | | | | + +--------+ +--------+ + + | [place] | Person | Self | [birth year] | Home: | [address] | | [address] | al/Fam | | 1931 | [phone] [address] [place], [place] | | | [place] | | | [phone] | + +--------+ +--------+ + +
--- OUTSIDE RECORDS SUMMARY | ~2018-12-28 | XMS | Encounter Summary ---
Demographics + + + | Address | [address] | | | [place] [address] | + + + | Home Phone | | + + + | Preferred Language | Unknown | + + + | Marital Status | | + + + | Buddhist Affiliation | Unknown | + + + | Race | Unknown | + + + | Ethnic Group | Unknown | + + + Author + + + | Author | [facility] | | | and [place] | + + + | Organization | [facility] | | | [...] Team Providers + +------+ + | Care Geospatial Analyst Name | Role | Phone | + [...] HOSPITAL XRAY [address] | [address] [place] | | | | | [place] | [place] | | | | | [place] | [address] | | | | | [address] | [phone] | | | | | [phone] | | | +--------+ + + + [...]
--- OUTSIDE RECORDS SUMMARY | ~2018-12-28 | XMS | Clinical Summary ---
Demographics + + + | Address | [address] | | | [place] [address] | + + + | Home Phone | | + + + | Preferred Language | Unknown | + + + | Marital Status | | + + + | Rastafari Affiliation | Unknown | + + + | Race | Unknown | + + + | Ethnic Group | Unknown | + + + Author + + + | Author | [facility] | | | and [place] | + + + | Organization | [facility] | | | and Joseana [...] Team Providers + +------+ + | Care Dining Host Name | Role | Phone | + [...] +--------+ +---------+--------+ | MEDICARE | MEDICA | [id number] | 04/15/18 | [phone] | | Medica | | | RE | | 96-Pre | 5 | | re | | | PART A | | sent | | | | | | AND B | | | | | | + +--------+ +--------+ +---------+--------+ | AETNA SENIOR | AETNA | [id number] | | [phone] | | Indemn | [...] [place] | | | [phone] (Home) | [phone] | + +--------+ +--------+ + + Advance Directives + + + + + | Type | Date Recorded | Patient | Explanation | | | | Robotics Technician | | + + + + + | Power of | | | | | Chemical Equipment Sales Engineer | | | | + + + + + | Advance | | | | | Directive | | | | + + + + +
--- OUTSIDE RECORDS SUMMARY | ~2018-12-28 | XMS | Encounter Summary ---
Demographics + + + | Address | [address] | | | [place] [address] | + + + | Home Phone | | + + + | Preferred Language | Unknown | + + + | Marital Status | | + + + | Anabaptism Affiliation | Unknown | + + + | Race | Unknown | + + + | Ethnic Group | Unknown | + + + Author + + + | Author | [facility] | | | and [place] | + + + | Organization | [facility] | | | and [...] Team Providers + +------+ + | Care Adjunct Faculty For Medical Terminology Name | Role | Phone | + +------+ + PCP | Unavailable | + +------+ + Encounter Details +--------+ + + + + | Date | Type | Department | Care Team | Description | +--------+ + + + + | 12/15/ | [facility] | [place] | [place], | | | 2011 | Encounter | [facility] | [address] [facility] | | | | | [facility] | [facility] | | | | | [facility], | [address] | | | | | [place] [address] | [phone] | | | | | [phone] | | | +--------+ + + + [...]
--- OUTSIDE RECORDS SUMMARY | ~2018-12-28 | XMS | Encounter Summary ---
Demographics + + + | Address | [address] | | | [place] [address] | + + + | Home Phone | | + + + | Preferred Language | Unknown | + + + | Marital Status | | + + + | Orthodox Affiliation | Unknown | + + + | Race | Unknown | + + + | Ethnic Group | Unknown | + + + Author + + + | Author | [facility] | | | and Joseana | + + + | Organization | [facility] | [...] Providers + +------+ + | Care Implementation Specialist Name | Role | Phone | [...] | | [address] [place] | [facility], [place] | | | | | [place], [place] | [address] | | | | | [address] | [phone] | | | | | [phone] | | | +--------+ + + + [...]
--- OUTSIDE RECORDS SUMMARY | ~2018-12-28 | XMS | Encounter Summary ---
Demographics + + + | Address | [address] | | | [place] [address] | + + + | Home Phone [...] | Organization | [facility] | | | and Joseana | [...] Providers + +------+ + | Care Public Safety Police Name | Role | Phone | + +------+ + PCP | Unavailable | + +------+ + Encounter Details +--------+ + + + + | Date | Type | Department | Care Team | Description | +--------+ + + + + | 10/18/ | Hospital | [facility] | Graeme Solorio | | | 2012 | Encounter | [facility] | Kacey, ELISABETH [address] | | | | | [address] | [place], [place] | | | | | 4TH [facility], | [address] | | | | | [place] [address] | [phone] | | | | | [phone] | | | +--------+ + + + [...]
--- OUTSIDE RECORDS SUMMARY | ~2018-12-28 | XMS | Encounter Summary ---
Demographics + + + | Address | [address] | | | [place] [address] | + + + | Home Phone | | + + + | Preferred Language | Unknown | + + + | Marital Status | | + + + | Gnosticist Affiliation | Unknown | + + + | Race | Unknown | + + + | Ethnic Group | Unknown | + + + Author + + + | Author | [facility] | | | and Joseana | + + + | Organization | [facility] | | | and [...] Team Providers + +------+ + | Care Surgeon/President Name | Role | Phone | + +------+ + PCP | Unavailable | + +------+ + Encounter Details +--------+ + + + + | Date | Type | Department | Care Team | Description | +--------+ + + + + | 12/11/ | Hospital | [facility] | Luis Hyde, | | | 2009 | Encounter | MED CTR LABORATORY | [address] [place] [address] | | | | | [address] | [place] | | | | | [place] | [address] | | | | | [address] | | | | | | [phone] | | | +--------+ + + + [...]
--- OUTSIDE RECORDS SUMMARY | ~2018-12-28 | XMS | Encounter Summary ---
Demographics + + + | Address | [address] | | | [place] [address] | + + + | Home Phone | | + + + | Preferred Language | Unknown | + + + | Marital Status | | + + + | Orthodoxy Affiliation | Unknown | + + + | Race | Unknown | + + + | Ethnic Group | Unknown | + + + Author + + + | Author | [facility] | | | and Joseana | + + + | Organization | [facility] | | | and Joseana [...] Team Providers + +------+ + | Care Paper Bag Maker Name | Role | Phone | + +------+ + PCP | Unavailable | + +------+ + Encounter Details +--------+ + + + + | Date | Type | Department | Care Team | Description | +--------+ + + + + | 12/09/ | [facility] | [place] | Jas Buchanan, | | | 2011 | Encounter | [facility] | [address] [facility] [facility] | | | | | [address] | [facility] [place] | | | | | [facility]TH [facility], | [address] | | | | | [place] [address] | [phone] | | | | | [phone] | | | +--------+ + + + [...]
--- OUTSIDE RECORDS SUMMARY | ~2018-12-28 | XMS | Encounter Summary ---
Demographics + + + | Address | [address] | | | [place] [address] | + + + | Home Phone [...] Organization | [facility] | | | and Joseana [...] Team Providers + +------+ + | Care Jig Builder Name | Role | Phone | + [...] | | | | DEPARTMENT [address] | [address] | | | | | [place] [place] | [phone] | | | | | [place] | | | | | | [address] | | | | | | [phone] | | | +--------+ + + + [...]
--- OUTSIDE RECORDS SUMMARY | ~2018-12-28 | XMS | Encounter Summary ---
Demographics + + + | Address | [address] | | | [place] [address] | + + + | Home Phone | | + + + | Preferred Language | Unknown | + + + | Marital Status | | + + + | Sabianist Affiliation | Unknown | + + + | Race | Unknown | + + + | Ethnic Group | Unknown | + + + Author + + + | Author | [facility] | | | and Joseana | + + + | Organization | [facility] | [...] Team Providers + +------+ + | Care Charhouse Worker Name | Role | Phone | + +------+ + PCP | Unavailable | + +------+ + Encounter Details +--------+ + + + + | Date | Type | Department | Care Team | Description | +--------+ + + + + | 10/11/ | [facility] | [facility] | Graeme Solorio | | | 2011 | Encounter | [facility] | Kacey, ELISABETH [address] | | | | | MEDICAL [address] | [facility], [place] | | | | | [address]TH [facility], | [address] | | | | | [place] [address] | [phone] | | | | | [phone] | | | +--------+ + + + [...]
--- OUTSIDE RECORDS SUMMARY | ~2018-12-28 | XMS | Encounter Summary ---
Demographics + + + | Address | [address] | | | [place] [address] | + + + | Home Phone | | + + + | Preferred Language | Unknown | + + + | Marital Status | | + + + | Jewish Affiliation | Unknown | + + + | Race | Unknown | + + + | Ethnic Group | Unknown | + + + Author + + + | Author | [facility] | | | and Joseana | + + + | Organization | [facility] | | | and Joseana [...] Team Providers + +------+ + | Care Chlorination Operator Name | Role | Phone | + +------+ + PCP | Unavailable | + +------+ + Encounter Details +--------+ + + + + | Date | Type | Department | Care Team | Description | +--------+ + + + + | 04/30/ | [facility] | [place] | Jas Buchanan, | | | 2010 | Encounter | [facility] | [address] [facility] | | | | | MEDICAL CL[address] | [facility] [place] | | | | | [facility], | [address] | | | | | [place] [address] | [phone] | | | | | [phone] | | | +--------+ + + + [...]
--- OUTSIDE RECORDS SUMMARY | ~2018-12-28 | XMS | Encounter Summary ---
Demographics + + + | Address | [address] | | | [place] [address] | + + + | Home Phone | | + + + | Preferred Language | Unknown | + + + | Marital Status | | + + + | Scientologist Affiliation | Unknown | + + + | Race | Unknown | + + + | Ethnic Group | Unknown | + + + Author + + + | Author | [facility] | | | and Joseana | + + + | Organization | [facility] | [...] Providers + +------+ + | Care Jig Inspector Name | Role | Phone | + +------+ + PCP | Unavailable | + +------+ + Encounter Details +--------+ + + + + | Date | Type | Department | Care Team | Description | +--------+ + + + + | 12/10/ | [facility] | [place] | Jas Buchanan, | | | 2011 | Encounter | [facility]ITAL [facility] | [address] [facility] | | | | | MEDICAL CL[address] | [facility] [place] | | | | | [facility]TH [facility], | [address] | | | | | [place] [address] | [phone] | | | | | [phone] | | | +--------+ + + + [...]
--- OUTSIDE RECORDS SUMMARY | ~2018-12-28 | XMS | Encounter Summary ---
Demographics + + + | Address | [address] | | | [place] [address] | + + + | Home Phone | | + + + | Preferred Language | Unknown | + + + | Marital Status | | + + + | Confucianism Affiliation | Unknown | + + + | Race | Unknown | + + + | Ethnic Group | Unknown | + + + Author + + + | Author | [facility] | | | and Joseana | + + + | Organization | [facility] | | [...] Team Providers + +------+ + | Care Microfabrication Engineer Manager Name | Role | Phone | + +------+ + PCP | Unavailable | + +------+ + Encounter Details +--------+ + + + + | Date | Type | Department | Care Team | Description | +--------+ + + + + | 10/28/ | Hospital | [facility] | Luis Hyde E, | | | 2009 | Encounter | MED CTR GENERIC OP | MD [address] [facility] | | | | | CONV DEPT [address] | [place] | | | | | [place], | [id number] | | | | | [place] [address] | | | | | | [phone] | | | +--------+ + + + [...]
--- OUTSIDE RECORDS SUMMARY | ~2018-12-28 | XMS | Encounter Summary ---
Demographics + + + | Address | [address] | | | [place] [address] | + + + | Home Phone | | + + + | Preferred Language | Unknown | + + + | Marital Status | | + + + | Samaritan Affiliation | Unknown | + + + | Race | Unknown | + + + | Ethnic Group | Unknown | + + + Author + + + | Author | [facility] | | | and Joseana | + + + | Organization | [facility] | | | [...] Team Providers + +------+ + | Care Compliance Consultant Name | Role | Phone | + +------+ + PCP | Unavailable | + +------+ + Encounter Details +--------+ + + + + | Date | Type | Department | Care Team | Description | +--------+ + + + + | 04/30/ | [facility] | [place] | Jas Buchanan, | | | 2010 | Encounter | [facility] | [address] [facility] | | | | | MEDICAL [address] | [facility] [place] | | | | | 4TH [facility], | [address] | | | | | [place] [address] | [phone] | | | | | [phone] | | | +--------+ + + + [...]
--- OUTSIDE RECORDS SUMMARY | ~2018-12-28 | XMS | Encounter Summary ---
Demographics + + + | Address | [address] | | | [place] [address] | + + + | Home Phone | | + + + | Preferred Language | Unknown | + + + | Marital Status | | + + + | Presybeterian Affiliation | Unknown | + + + | Race | Unknown | + + + | Ethnic Group | Unknown | + + + Author + + + | Author | [facility] | | | and Joseana | + + + | Organization | [facility] | | | and [...] Team Providers + +------+ + | Care Asphalt Machine Operator Name | Role | Phone | + +------+ + PCP | Unavailable | + +------+ + Encounter Details +--------+ + + + + | Date | Type | Department | Care Team | Description | +--------+ + + + + | 09/06/ | [facility] | [place] | Jas Buchanan, | | | 2011 | Encounter | [facility] | [address] [facility] | | | | | MEDICAL CL[address] | [facility] [place] | | | | | 4TH [facility], | [address] | | | | | [place] [address] | [phone] | | | | | [phone] | | | +--------+ + + + [...]
--- OUTSIDE RECORDS SUMMARY | ~2018-12-28 | XMS | Encounter Summary ---
Demographics + + + | Address | [address] | | | [place] [address] | + + + | Home Phone [...] + + | Author | [facility] | | | and Joseana | + + + | Organization | [facility] | | | and Joseana | [...] Team Providers + +------+ + | Care Steward/Stewardess Room Name | Role | Phone | + +------+ + PCP | Unavailable | + +------+ + Encounter Details +--------+ + + + + | Date | Type | Department | Care Team | Description | +--------+ + + + + | 11/25/ | Hospital | [place] | Jas Buchanan, | | | 2009 | Encounter | HOSPITAL LAB[facility]ATORY | [address] [place] | | | | | [address] [place] | [place] | | | | | [place] | [address] | | | | | [address] | [phone] | | | | | [phone] | | | +--------+ + + + [...]
--- OUTSIDE RECORDS SUMMARY | ~2018-12-28 | XMS | Encounter Summary ---
Demographics + + + | Address | [address] | | | [place] [address] | + + + | Home Phone | | + + + | Preferred Language | Unknown | + + + | Marital Status | | + + + | Latter-Day Affiliation | Unknown | + + + | Race | Unknown | + + + | Ethnic Group | Unknown | + + + Author + + + | Author | [facility] | | | and Joseana | + + + | Organization | [facility] | | | and [...] Team Providers + +------+ + | Care Remittance Clerk Name | Role | Phone | + +------+ + PCP | Unavailable | + +------+ + Encounter Details +--------+ + + + + | Date | Type | Department | Care Team | Description | +--------+ + + + + | 06/02/ | [facility] | [place] | Jas Buchanan, | | | 2010 | Encounter | [facility]ITAL [facility] | [address] [place] | | | | | MED[address] | [facility] [place] | | | | | [address] [facility], | [address] | | | | | [place] [address] | [phone] | | | | | [phone] | | | +--------+ + + + [...]
--- OUTSIDE RECORDS SUMMARY | ~2018-12-28 | XMS | Encounter Summary ---
Demographics + + + | Address | [address] | | | [place] [address] | + + + | Home Phone [...] + | Organization | [facility] | | | and Joseana [...] Team Providers + +------+ + | Care Jet Dyeing Machine Operator Name | Role | Phone [...] | SR | | | | | [phone] | | | +--------+ + + + [...]
--- OUTSIDE RECORDS SUMMARY | ~2018-12-28 | XMS | Encounter Summary ---
Demographics + + + | Address | [address] | | | [place] [address] | + + + | Home Phone | | + + + | Preferred Language | Unknown | + + + | Marital Status | | + + + | Restorationist Affiliation | Unknown | + + + | Race | Unknown | + + + | Ethnic Group | Unknown | + + + Author + + + | Author | [facility] | | | and [place] | + + + | Organization | [facility] | | | and [...] Team Providers + +------+ + | Care Mobility Scooter Repairer Name | Role | Phone | + +------+ + PCP | Unavailable | + +------+ + Encounter Details +--------+ + + + + | Date | Type | Department | Care Team | Description | +--------+ + + + + | 03/01/ | Hospital | [place] | Jas Buchanan, | | | 2013 | Encounter | HOSPITAL LAB[facility]ORY | [address] [place] | | | | | [address] [place] | [place] | | | | | [place] | [address] | | | | | [address] | [phone] | | | | | [phone] | | | +--------+ + + + [...] - 1.030 | EXTERNAL | | | [place], | | | LAB | | | [...]
--- OUTSIDE RECORDS SUMMARY | ~2018-12-28 | XMS | Encounter Summary ---
Demographics + + + | Address | [address] | | | [place] [address] | + + + | Home Phone | | + + + | Preferred Language | Unknown | + + + | Marital Status | | + + + | Caodaism Affiliation | Unknown | + + + | Race | Unknown | + + + | Ethnic Group | Unknown | + + + Author + + + | Author | [facility] | | | and [place] | + + + | Organization | [facility] | | | and Joseana [...] Team Providers + +------+ + | Care Counter Supervisor Name | Role | Phone | + +------+ + PCP | Unavailable | + +------+ + Encounter Details +--------+ + + + + | Date | Type | Department | Care Team | Description | +--------+ + + + + | 10/11/ | [facility] | [facility] | Graeme Solorio | | | 2011 | Encounter | H[facility] | Kacey, ELISABETH [address] | | | | | MEDICAL [address] | [facility] [place] | | | | | [facility]TH [facility], | [address] | | | | | [place] [address] | [phone] | | | | | [phone] | | | +--------+ + + + [...]
--- OUTSIDE RECORDS SUMMARY | ~2018-12-28 | XMS | Encounter Summary ---
Demographics + + + | Address | [address] | | | [place] [address] | + + + | Home Phone | | + + + | Preferred Language | Unknown | + + + | Marital Status | | + + + | Baptist Affiliation | Unknown | + + + | Race | Unknown | + + + | Ethnic Group | Unknown | + + + Author + + + | Author | [facility] | | | and [place] | + + + | Organization | [facility] | [...] Team Providers + +------+ + | Care Correction Officer Name | Role | Phone | + +------+ + PCP | Unavailable | + +------+ + Encounter Details +--------+ + + + + | Date | Type | Department | Care Team | Description | +--------+ + + + + | 05/13/ | [facility] | [facility] | Dionicio Lucia, | | | 2012 | Encounter | [facility] | LOG DECK TENDER [address] | | | | | MEDICAL CLIN[address] | [place] [address] | | | | | [address] [facility], | [phone] | | | | | [place] [address] | | | | | | [phone] | | | +--------+ + + + [...]
--- OUTSIDE RECORDS SUMMARY | ~2018-12-28 | XMS | Encounter Summary ---
Demographics + + + | Address | [address] | | | [place] [address] | + + + | Home Phone | | + + + | Preferred Language | Unknown | + + + | Marital Status | | + + + | Catholic Affiliation | Unknown | + + + | Race | Unknown | + + + | Ethnic Group | Unknown | + + + Author + + + | Author | [facility] | | | and [place] | + + + | Organization | [facility] | [...] Team Providers + +------+ + | Care Sausage Machine Operator Name | Role | Phone | + +------+ + PCP | Unavailable | + +------+ + Encounter Details +--------+ + + + + | Date | Type | Department | Care Team | Description | +--------+ + + + + | 12/15/ | [facility] | [place] | Jas Buchanan, | | | 2011 | Encounter | [facility] | [address] [facility] | | | | | MEDICAL CLIN[address] | [facility] [place] | | | | | [address] [facility], | [address] | | | | | [place] [address] | [phone] | | | | | [phone] | | | +--------+ + + + [...]
--- OUTSIDE RECORDS SUMMARY | ~2018-12-28 | XMS | Clinical Summary ---
Demographics + + + | Address | [address] | | | [place] [address] | + + + | Home Phone | | + + + | Preferred Language | Unknown | + + + | Marital Status | | + + + | Methodist Affiliation | Unknown | + + + | Race | Unknown | + + + | Ethnic Group | Unknown | + + + Author + + + | Author | [facility] (Historical as of | | | 10-01-18) | + + + | Organization | [facility] (Historical as of | | | 10-01-18) [...] Team Providers + +------+ + | Care Completion Manager Name | Role | Phone | [...] +------+-------+ + | MEDICARE | MEDICA | [id number] | | | [address] | | | [place] | | | | [place] [address] | | | IP-OP | | | | | + +--------+ +------+-------+ + | AETNA | AETNA | [id number] | | | | | | GENERI [...] | [place] | | | [phone] | [phone] | + +--------+ +--------+ + +
--- OUTSIDE RECORDS SUMMARY | ~2018-12-28 | XMS | Encounter Summary ---
Demographics + + + | Address | [address] | | | [place] [address] | + + + | Home Phone | | + + + | Preferred Language | Unknown | + + + | Marital Status | | + + + | Jew Affiliation | Unknown | + + + | Race | Unknown | + + + | Ethnic Group | Unknown | + + + Author + + + | Author | [facility] | | | and [place] | + + + | Organization | [facility] | | | and Joseana [...] Team Providers + +------+ + | Care Strike Warfare/Missile Systems Officer Name | Role | Phone | + +------+ + | Adolph Balderas MD | PCP | | + +------+ + Encounter Details +--------+ + + + + | Date | Type | Department | Care Team | Description | +--------+ + + + + | 07/20/ | Hospital | [facility] | Luis Hyde, | Chronic pain of | | 2017 | Encounter | MED CTR SHANTEL XRAY | [address] [facility] | right knee; Pain due | | | | [address] [place] | [place] | to total knee | | | | [place] | [address] | replacement, initial | | | | [address] | | encounter (HCC) | | | | [phone] | | | +--------+ + + + [...] 2 views of the right knee. 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 No joint effusion. [...] [address] 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
--- OUTSIDE RECORDS SUMMARY | ~2018-12-28 | XMS | Encounter Summary ---
Demographics + + + | Address | [address] | | | [place] [address] | + + + | Home Phone | | + + + | Preferred Language | Unknown | + + + | Marital Status | | + + + | Oriental Orthodox Affiliation | Unknown | + + + | Race | Unknown | + + + | Ethnic Group | Unknown | + + + Author + + + | Author | [facility] | | | and [place]ana | + + + | Organization | [facility] | | [...] Team Providers + +------+ + | Care Lens Maker Name | Role | Phone | + +------+ + PCP | Unavailable | + +------+ + Encounter Details +--------+ + + + + | Date | Type | Department | Care Team | Description | +--------+ + + + + | 06/02/ | [facility] | [place] | Jas Buchanan, | | | 2010 | Encounter | H[facility]ITAL [facility] | [address] | | | | | MED[address] CL[address] | [facility] [place] | | | | | [facility]TH [facility], | [address] | | | | | [place] [address] | [phone] | | | | | [phone] | | | +--------+ + + + [...]
[2018-12-28] MEDS ORDERED: CEFUROXIME250 MG PO (19:13)
== END 2018-12-28 19:35 | disposition home or self-care (01) ==
LOC: ED 14:50
DX: S39.012A Strain of muscle, fascia and tendon of lower back, initial encounter (principal); N39.0 Urinary tract infection, site not specified; W19.XXXA Unspecified fall, initial encounter
CPT/HCPCS: 71045; 74177; 80053; 81001; 82550; 83605; 83690; 84484; 85025; 93005; 93010; 99284-25; J0696

== ENCOUNTER 2019-01-14 17:50 | Inpatient (IN) | payer MEDICARE, OTHER ==
[~2019-01-14] VITALS: Ht 167.6 cm; Wt 61.0 kg
[~2019-01-14 17:50] MED LIST: CEFUROXIME250 MG PO
--- OUTSIDE RECORDS SUMMARY | 2019-01-14 17:52 | XMS ---
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 Tye VISIT COUNT (12 MO.) 2 [facility] TOTAL 2 NOTE: Visits indicate total known visits. ED/UCC VISIT TRACKING (12 MO.) 01/14/2019 17:51 [facility] [place] TYPE: Emergency COMPLAINT: - WEAKNESS, CONFUSION 12/28/2018 14:52 [facility] [place] TYPE: Emergency COMPLAINT: - ABDOMINAL PAIN DIAGNOSES: - Strain of muscle, fascia and tendon of lower back, init - Urinary tract infection, site not specified - Unspecified fall, initial encounter - Unspecified abdominal pain INPATIENT VISIT TRACKING (12 MO.) No inpatient visits to display in this time frame [email or web address]
[2019-01-14] MEDS ORDERED: CIPRO500 MG PO (18:08)
--- NOTE | 2019-01-14 21:24 | NUR ---
PT ARRIVED TO THE FLOOR VIA STRETCHER. SHE IS TUCKED INTO BED AND HAS 2 SONS AND A QARUPOAR-HC-EED IN THE ROOM AT THIS TIME ANSWERING ADMISSION HX QUESTIONS. SHE IS CONFUSED AND CANNOT SEEM TO FIND THE CORRECT WORDS AT TIMES. BED ALARM IS ON AND AND CALL LIGHT IS CLOSE. FAMILY IS IN THE ROOM AT THIS TIME.
--- NOTE | 2019-01-14 22:30 | NUR ---
ASSESSMENT COMPLETE, UNABLE TO ASSESS ORIENTATION, PT SLOW TO RESPOND AND SPEECH IS MUMBLED. VSS, SCHEDULED MEDS GIVEN (SEE EMAR). DRY ATTENDS IN PLACE, PT DENIES PAIN OR NAUSEA. BED ALARM ON FOR SAFETY, CALL LIGHT IN REACH.
--- NOTE | 2019-01-14 23:24 | NUR ---
PT RESTING IN BED, EYES CLOSED, RESPIRATIONS EVEN AND UNLABORED. IV FLUID BOLUS INFUSING PER MD ORDERS, IV SITE WNL. NO SIGNS OF DISCOMFORT OR PAIN NOTED. CALL LIGHT IN REACH.
--- NOTE | 2019-01-15 00:23 | NUR ---
WITH THE HELP OF SHARIFA HOPE WE DID A COMPLETE BED CHANGE AND CHANGED HER GOWN DUE TO INCONTINENTS OF URINE. EMPTIED GARBAGES. BEDSIDE TABLE AND CALL LIGHT IN REACH.
--- NOTE | 2019-01-15 00:24 | NUR ---
PT INCONTINENT OF URINE, COMPLETE BED CHANGE COMPLETED WITH HELP FROM AMADA MAY. SPEECH CONTINUES TO BE MUMBLED AND DIFFICULT TO UNDERSTAND AT TIMES. PUMP ALARM GOING OFF FREQUENTLY FOR DISTAL ALARM, IV BOLUS INFUSING PER MD ORDERS. SITE ASSESSED, NO SIGNS OF INFILTRATION NOTED. SITE WRAPPED IN WASH CLOTH AND COBAN, WILL MONITOR. BED ALARM ON. CALL LIGHT IN REACH.
--- NOTE | 2019-01-15 01:50 | NUR ---
VITALS AND I&OS DONE AND CHARTED. BEDSIDE TABLE AND CALL LIGHT IN REACH. PT NEEDS NOTHING AT THIS TIME.
--- NOTE | 2019-01-15 02:23 | NUR ---
iv maintenance fluids hung and infusing at 75mls/hr, site wnl. no further needs, call light in reach.
--- NOTE | 2019-01-15 03:45 | NUR ---
WITH THE HELP OF SHARIFA HOPE WE CHANGED PT ATTENDS INCONTINENT OF URINE. GOWN CHANGED WELL. BEDSIDE TABLE AND CALL LIGHT IN REACH.
--- NOTE | 2019-01-15 03:54 | NUR ---
THIS RN ROUNDING ON PT, PT FOUND RESTING IN BED, IV SITES X2 PULLED BY PT AND WRAPPED IN GOWN ON BEDSIDE TABLE. PT ALSO INCONTINENT. PT CHANGED WITH HELP FROM AMADA MAY. NEW IV ATTEMPTED BY THIS RN, ATTEMPT UNSUCCESSFUL. SHARIFA VIEYRA IN ROOM TO ATTEMPT IV.
--- NOTE | 2019-01-15 04:26 | NUR ---
UNABLE TO OBTAIN NEW IV SITE AT THIS TIME. A 3RD RN FABIANA IS IN THE ROOM AT THIS TIME.
--- NOTE | 2019-01-15 04:45 | NUR ---
STARTED NEW 18G IVIN THE RIGHT HAND AT ABOUT 0445. WINDOW DRRESSING AND SITE DRAWS AND FLUSHES WELL.
--- NOTE | 2019-01-15 05:29 | NUR ---
WRAP TO LEFT HAND REMOVED BY PT. INDEX FINGERS COBANED WITH MIDDLE FINGERS IN AN ATTEMPT TO DISCOURAGE IV REMOVAL BY PT. PT WANTING TO GET OUT OF BED AND STATES, "I HAVE TO TAKE HER TO SCHOOL". PT REORIENTED TO PLACE, BED ALARM ON FOR SAFETY. CALL LIGHT IN REACH. IV FLUIDS INFUSING PER MD ORDERS, SITE WNL.
--- NOTE | 2019-01-15 08:05 | NUR ---
PT LYING IN BED, APPEARS TO BE SLEEPING. EYES CLOSED RESP EVEN AND UNLABORED. BED ALARM ON.
--- NOTE | 2019-01-15 08:57 | NUR ---
IN FOR PTS INITIAL CASE MANAGEMENT ASSESSMENT. PT UNABLE TO ANSWER QUESTIONS. INFORMATION GAINED FROM CHART. PT LIVES NEXT TO FAMILY AND THEY CHECK ON HER FREQUENTLY. NORMALLY CAN COMPLETE ALL ADLS ON OWN.
--- NOTE | 2019-01-15 09:45 | NUR ---
PT SITTING UP IN BED EATING BREAKFAST INDEPENDENTLY. PT ORIENTED TO SELF AT THIS TIME. SPEECH IS CLEAR BUT WORD HONG NOTED. MUCH OF WHAT SHE SAYS DOES NOT MAKE SENSE TO THIS RN, NOT RELEVANT TO CONVERSATION. PT DENIES PAIN AND SHOWS NO SIGNS OF PAIN OR DISTRESS AT THIS TIME. SENSATION APPEARS TO BE INTACT. FIT MODEL EQUAL AND STRONG. BLE WEAK BUT EQUAL STRENGTH. IV INFUSING WNL. CALL LIGHT WITHIN REACH.
--- NOTE | 2019-01-15 10:14 | NUR ---
PATIENT IN BED. THIS RN CLINICAL DOCUMENTATION AND RN CLINICAL DOCUMENTATION JOSE TRIED TO GET HER UP TO THE CHAIR. THE PATIENT WAS COMBATIVE AND WOULD NOT COOPERATE. WE HAD TO GET THE RN PITA TO HELP WITH THE BRIEF CHANGE. FRESH WATER GIVEN. CALL LIGHT IN REACH. NO FURTHER NEEDS AT THIS TIME.
--- NOTE | 2019-01-15 11:45 | NUR ---
PT SITTING UP IN RECLINER. SON AND DAUGHTER AT BEDSIDE, CONCERNED ABOUT PT'S SPEECH. PT SPEECH COMPREHENSIBLE NOW BUT CONTINUES WITH WORD SALAD. PT SHOWS NO SIGNS OF DISTRESS AT THIS TIME. IV INFUSING WNL. CALL LIGHT WITHIN REACH.
--- NOTE | 2019-01-15 13:40 | NUR ---
ENTERED ROOM TO FIND THAT PT HAD PULLED IV. BLOOD ALL OVER BLANKETS, PT GOWN, ARM, ETC. PT CLEANED UP AND NEW 20G IV STARTED IN LEFT ARM BY MONE Hernandez RN. PT SITTING UP IN CHAIR. SON AT BEDSIDE. CALL LIGHT WITHIN REACH.
--- NOTE | 2019-01-15 14:45 | NUR ---
PT SITTING UP IN RECLINER. DAUGHTER AND AC FRIAS AT BEDSIDE. PT SPEECH HAS IMPROVED, SENTENCES ARE MORE COMPREHENSIVE AND RELEVANT. PT NOW HAVING VISUAL HALLUCINATIONS. SEES CHILDREN, DOGS, MICE ETC IN ROOM. DR. KHOURY AWARE. CHAIR ALARM ON. CALL LIGHT WIHTIN REACH.
--- NOTE | 2019-01-15 16:45 | NUR ---
PT 2PA TO BSC. HAD INCONTINENT VOID PRIOR TO GETTING UP. HAD MEDIUM SOFT BM. ASSISTED BACK TO CHAIR. PT REMAINS VERY CONFUSED. NO LONGER ORIENTED TO SELF. CONT WITH VISUAL HALLUCINATIONS. PT PICKING AT BLANKETS, IV SITE ETC. CHAIR ALARM ON.
--- NOTE | 2019-01-15 17:25 | NUR ---
PT SITTING UP IN RECLINER. SON PRESENT ASSISTING PT TO EAT DINNER. DENIES NEEDS OR CONCERNS AT THIS TIME. CALL LIGHT WITHIN REACH. CHAIR ALARM ON.
--- NOTE | 2019-01-15 19:13 | NUR ---
RECEIVED REPORT FROM ZHENG SKAGGS. pt SITTING IN BED, SPOKE CLEARLY ABOUT A DOG ON HER LAP (NO DOG PRESENT). CHAIR ALARM ON. IV INFUSING, SITE WELL WRAPPED. CURTAIN OPEN.
--- NOTE | 2019-01-15 20:03 | NUR ---
PT MOVED TO ROOM 110 FOR CLOSER SUPERVISION. CHAIR ALARM IN PLACE, PT CONFUSED AT BASELINE, UP IN RECLINER CHAIR.
--- NOTE | 2019-01-15 20:45 | NUR ---
pt SITTING IN CHAIR. ASSESSMENT DONE. NO REQUESTS AT THIS TIME. CHAIR ALARM ON. LEGS ELEVATED.
--- NOTE | 2019-01-15 21:50 | NUR ---
MEDICATIONS DUE. IV ABX INFUSING. pt REFUSED INJECTION IN ABD, ALLOWED PLACEMENT IN ARM. CHAIR ALARM ON. CURTAIN OPEN TO THE NURSES STATION.
--- NOTE | 2019-01-15 22:30 | NUR ---
IV BEEPING, IV ABX INFUSION COMPLETE, IVF INFUSING. NO REQUESTS AT THIS TIME. CHAIR ALARM ON. CURTAIN OPEN TO THE NURSES STATION.
--- NOTE | 2019-01-15 23:00 | NUR ---
pt REPORTED NEEDING TO VOID, ATTEMPTED TO PIVOT TO BSC 2PA, pt URINATED A LARGE QUANTITY IN DEPENDS. 2PA PIVOT TO BED. CHAIR AND FLOOR CLEANED. pt TUCKED INTO BED WITH WASH CLOTH TO FIDGET WITH. BED ALARM ON. CURTAIN OPEN TO THE NURSES STATION. IV SECURED.
--- NOTE | 2019-01-16 00:26 | NUR ---
ROUNDED ON pt. RESTING WITH EYES CLOSED, RESPIRATIONS REGULAR AND UNLABORED, RATE = 16. BED ALARM ON. CURTAIN OPEN TO THE NURSES STATION.
--- NOTE | 2019-01-16 02:36 | NUR ---
pt CHANGED, PERICARE DONE. ASSESSMENT DONE. pt REPEATED "JUST LEAVE ME ALONE" WARM BLANKET PROVIDED. BED ALARM ON. CURTAIN OPEN TO NURSES STATION.
--- NOTE | 2019-01-16 02:51 | NUR ---
WITH THE HELP OF SHARIFA ALFORD WE CHANGED PT'S ATTENDS INCONTINENT OF URINE. BEDSIDE TABLE AND CALL LIGHT IN REACH. WARM BLANKET GIVEN.
--- NOTE | 2019-01-16 04:14 | NUR ---
pt RESTING WITH EYES CLOSED, RESPIRATIONS REGULAR AND UNLABORED. BED ALARM ON. CURTAIN OPEN TO THE NURSES STATION.
--- NOTE | 2019-01-16 05:39 | NUR ---
pt RESTED MOST OF SHIFT. SOME VISUAL HALLUCINATIONS AT BEGINNING OF SHIFT. DOES NOT USE CALL LIGHT APPROPRIATELY. BED/CHAIR ALARM. INCONTINENT. 2PA PIVOT. DOES NOT ALWAYS FOLLOW COMMANDS. ORIENTED TO SELF.
--- NOTE | 2019-01-16 06:30 | NUR ---
CHANGED pt, PERICARE DONE. VITALS AND I&O RECORDED. pt WOKE BRIEFLY STATED "GO AWAY, LEAVE ME ALONE" BED ALARM ON. CURTAIN OPEN TO THE NURSES STATION.
--- NOTE | 2019-01-16 08:00 | NUR ---
PT LYING IN BED APPEARS TO BE SLEEPING. EYES CLOSED, RESP EVEN AND UNLABORED. BED ALARM ON.
--- NOTE | 2019-01-16 09:00 | NUR ---
In and spoke with pt's daughter in law Haydee. Pt is sleeping and does not awaken to voice. Dr. Winn in the room and attempts to awaken and pt. cont. to sleep. His suggestion to family is for retirement with PT for strengthening when pt awakens. Haydee is not sure if they want this, and would prefer to take the pt home. Discussed she may not be strong enough. She will get with pt's sons and they will discuss pt needs.
--- NOTE | 2019-01-16 09:21 | NUR ---
PATIENT IN BED RESTING WITH EYES CLOSED. TRIED TO GET PATIENT TO WAKE UP AND ORDER BREAKFAST BUT PATIENT JUST KEEPS FALLING BACK TO SLEEP. VANDANA CARE DONE. NEW ATTENDS. CALL LIGHT IN REACH. NO FURTHER NEEDS AT THIS TIME.
--- NOTE | 2019-01-16 09:59 | NUR ---
MED REC COMPLETE
--- NOTE | 2019-01-16 10:06 | NUR ---
PT DIFFICULT TO ROUSE. REPSONDS WITH MOANS AND PUSHES MY HAND AWAY AND SAYS "STOP THAT" WITH PAINFUL STIMULI. 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 NO FACIAL DROOP NOTED, PUPILS EQUAL AND REACTIVE, REFLEXES INTACT. VSS. DR. KHOURY IN TO ASSESS PT. NO NEW ORDERS AT THIS TIME. PT REPOSITIONED. BED ALARM ON.
--- NOTE | 2019-01-16 14:30 | NUR ---
PT CONT TO REMAIN OBTUNDED. VERY SMALL INCONTINENT URINE. BLADDER SCANNED FOR 740ML OF URINE. NOTIFIED DR. KHOURY. OBTAINED ORDER FOR STRAIGHT CATH WITH UA AND LABS.
--- NOTE | 2019-01-16 14:55 | NUR ---
STRAIGHT CATH COMPLETED USING STERILE TECHNIQUE. OBTAINED 450ML OF CLEAR YELLOW URINE. UA SENT TO LAB. PT MARICARMEN WELL. STILL DID NOT OPEN EYES AND HAS LITTLE RESPONSE TO PRCEDURE. VANDANA CARE PERFORMED, ASSISTED TO POSITION OF COMFORT. BED ALARM ON.
--- NOTE | 2019-01-16 15:45 | NUR ---
PATIENT RESTING IN BED. PHYSICAL THERAPIST IN ROOM. PATIENT GOES TO USE THE BASE COMMODE. PATIENT USES WALKER AND GATE BELT. TWO PERSON ASSISTING. PATIENT GOES TO WALK IN THE HALLWAY. TWO PERSON ASSISTING. PATIENT BACKS TO CHAIR. SETS UP TABLE FOR LUNCH. CHAIR ALARM ON. CALL LIGHT WITHIN REACH. NO OTHER NEEDS AT THIS TIME
--- NOTE | 2019-01-16 15:47 | NUR ---
PT NOW AWAKE. ASSISTED OUT OF BED BY P.T. AMB HALLWAY WITH P.T. WITH WALKER AND WHEELCHAIR FOLLOW. MARICARMEN WELL.
--- NOTE | 2019-01-16 16:06 | NUR ---
PT SITTING UP IN RECLINER, CHAIR ALARM ON. EATING DINNER INDEPENDENTLY.
--- NOTE | 2019-01-16 17:27 | NUR ---
PT SITTING UP IN RECLINER. ALERT AND ORIENTED TO SELF ONLY. PT STATES "I FEEL OK, I JUST WISH I WAS A LITTLE MORE ORIENTED." DOES NOT APPEAR TO BE HAVING VISUAL HALLUCINATIONS AT THIS TIME. DENIES PAIN. CHAIR ALARM ON. CALL LIGHT WITHIN REACH.
--- NOTE | 2019-01-16 18:08 | NUR ---
PATIENT IN CHAIR RESTING WITH EYES CLOSED. CALL LIGHT IN REACH. NO FURTHER NEEDS AT THIS TIME.
--- NOTE | 2019-01-16 19:02 | NUR ---
PT SITTING IN RECLINER. EYES CLOSED, RESP EVEN AND UNLABORED.
--- NOTE | 2019-01-16 19:32 | NUR ---
RECEIVED REPORT FROM DAY SHIFT RN. PATIENT IS RESTING IN ORDER BUILDER LOADER WITH HER EYES CLOSED, RR 17. CALL LIGHT IN REACH. SON PRESENT IN THE ROOM. SON IS POA AND SIGN PERMISSION FOR PATIENTS MRI TOMORROW. CALL LIGHT IN REACH.
--- NOTE | 2019-01-16 19:50 | NUR ---
CHARGE REPORT RECEIVED NEAR 190. PT SLEEPING IN CHAIR, EDITH RAND AT BEDSIDE.
--- NOTE | 2019-01-16 20:28 | NUR ---
PRIMARY RN GRABIEL AND THIS STAFF TRAINER HELPED PATIENT TO PUT TO BED.
--- NOTE | 2019-01-16 20:47 | NUR ---
PATIENT ASSESMENT COMPLETED. PATIENT ASSISTED TO BED FROM THE RECLINER A 2PA W/FWW. PATIENT TOLERATED ACTIVITY WELL BUT STRUGGLED TO FOLLOW COMMANDS. PATIENT IS AWAKE AND ONLY ORIENTED TO SELF AT THIS TIME. ATTEMPTED TO REORIENT PATIENT. PATIENT CONTINUES TO ONLY BE ALERT TO SELF. PATIENTS IV INFUSING PER ORDER. PATIENTS EVENING MEDICATIONS GIVEN PER ORDER. PATIENT DENIES ANY PAIN. PATIENTS ATTEND IS DRY AT THIS TIME. PATIENT DENIES ANY NEEDS AT THIS TIME. PATIENT IS RESTING IN BED WITH ALARM ON FOR SAFETY. PATIENT PROVIDED WITH SIPS OF WATER. PATIENT PROVIDED WITH WARM BLANKET. PATIENTS CALL LIGHT AND BELONGINGS WITHIN REACH.
--- NOTE | 2019-01-16 22:17 | NUR ---
PATIENT REPOSITIONED IN BED. PATIENT DENIES ANY NEEDS. CALL LIGHT IN REACH. ALARM ON FOR SAFETY.
--- NOTE | 2019-01-16 22:19 | NUR ---
PATIENT REPOSITIONED BY PRIMARY RN GRABIEL AND THIS ACCOUNTING ASSISTANT.
--- NOTE | 2019-01-17 00:06 | NUR ---
PATIENT REPOSITIONED IN BED. PATIENTS ATTEND REMAINS DRY. PATIENT OFFERED SIPS OF WATER. PATIENT DENIES ANY NEEDS. CALL LIGHT IN REACH. ALARM ON FOR SAFETY.
--- NOTE | 2019-01-17 00:10 | NUR ---
THIS MINT MACHINE OPERATOR AND PRIMARY RN ANDRINA REPOSITIONED PATIENT.
--- NOTE | 2019-01-17 02:33 | NUR ---
THIS PHOTOGRAPHIC ARTIST AND SHARIFA SPAIN HELPED PATIENT USE THE BEDSIDE COMMODE. PATIENT IS BACK IN BED.
--- NOTE | 2019-01-17 02:41 | NUR ---
PATIENT ASSISTED TO THE BSC A 2PA W/FWW. PIVOT TRANSFER. PATIENT WAS ABLE TO VOID A SCNAT AMOUNT. NEW IV STARTED OTHER ONE INFILTRATED. PATIENT TOLERATED ACTIVITY WELL. PATIENT DENIES ANY PAIN. PATIENT OFFERED DRINKS OF WATER. PATIENT DENIES ANY NEEDS. CALL LIGHT IN REACH.
--- NOTE | 2019-01-17 04:03 | NUR ---
PATIENT IS RESTING IN BED. PATIENT REPOSTIONED IN BED. PATIENTS ATTEND IS DRY. PATIENT DENIES ANY NEEDS. PATIENT IS DROWSY AND FALLS BACK ASLEEP EASILY.
--- NOTE | 2019-01-17 06:37 | NUR ---
PATIENT RESTED WELL THROUGHTOUT THE SHIFT. PATIENT IS ON A REGULAR DIET, ORAL INTAKE ENCOURAGED. PATIENT IS INCOTINENT AT TIMES. PATIENT IS A 2PA W/FWW, AND DOES NOT FOLLOW COMMANDS WELL. PATIENT IS ONLY ORIENTED TO SELF. PATIENT DOES AWAKE AND ANSWER QUESTIONS APPROPRIATELY. PATIENT HAS TRACE EDEMA IN HER ANKLES. PATIENT HAS REDDENED AREA AND SCAB ON COCYX, ALLEVYN IN PLACE. PATIENT HAS BEEN TURNED Q2. PATIENT DOES NOT USE CALL LIGHT APPROPRIATELY. PATIENT IS IN VIEW OF RN STATION. ALARM ON FOR SAFETY. IV INFUSING PER ORDER.
--- NOTE | 2019-01-17 06:41 | NUR ---
PATIENTS ATTEND WAS WET. PATIENT ALSO BLADDER SCANNED FOR 500ML. PATIENT ASSISTED A 2PA W/FWW TO PIVOT TRANSFER TO [facility]. PATIENT WAS ABLE TO VOID. PATIENT IS BACK IN BED RESTING. PATIENTS VITALS TAKEN AND RECORDED. INTAKE AND OUPUT RECORDED. PATIENT DENIES ANY NEEDS. ALARM ON FOR SAFETY.
--- NOTE | 2019-01-17 07:17 | NUR ---
REPORT RECEIVED FROM SHARIFA SPAIN. PT OFF FLOOR FOR MRI. DID WAKE WHEN WE MOVED HER TO [facility].
--- NOTE | 2019-01-17 07:36 | NUR ---
PT TRANSFERED BCK TO BED. WIDE AWAKE AND TALKING NORMALLY. STATES SHE IS SORE ALL OVER.
--- NOTE | 2019-01-17 08:51 | NUR ---
PT AWAKE AND TALKATIVE. ASKED APPROPRIATE QUESTIONS, HOW LONG SHE'S BEEN HERE ETC. PT ATE ALL OF A LARGE BREAKFAST. GIVEN ICE WATER AND TV REMOTE AND GUIDE.
--- NOTE | 2019-01-17 09:17 | NUR ---
PATIENT IN BED WORKING WITH PT. FRESH WATER GIVEN. CALL LIGHT IN REACH. NO FURTHER NEEDS AT THIS TIME.
--- NOTE | 2019-01-17 10:22 | NUR ---
PT DONE WORKING WITH DEVELOPMENT TECHNICAL LEAD. STATES THAT IT FELT GOOD TO GET SOME EXERCISE. HOOKED BACK UP TO IVF. SAGE IN ROOM
--- NOTE | 2019-01-17 11:43 | NUR ---
In and spoke with Deysi. She is awake and smiling. Appears oriented, but is having difficulty with her memory. She cannot remember the number of children she has. I discussed with her if she would consider living with her son's. She states she cannot live with her sons as they have young children at home. Her children are in their 60's and have grandchildren. She does not want a caregiver in her home. Asked her to think of what she can do for a safe discharge. Will discuss with family.
--- NOTE | 2019-01-17 12:32 | NUR ---
PT SITTING UP IN BED. ATE MOST OF A LARGE LUNCH. TALKING WITH HER DAUGHTER IN LAW. DENIES CONCERNS.
--- NOTE | 2019-01-17 12:50 | NUR ---
Daughter in law Haydee in to see pt. Discussed plan for safe discharge. She states the POA has called [employer] for eval to see if pt qualifies for state paid pcg. They will eval the home and then the pt. Discussed with Haydee, she could be the state paid day care assistant as she has been caring for the pt. She will just need to let [employer] know and they will work with her.
--- NOTE | 2019-01-17 13:25 | NUR ---
PATIENT IN BED RESTING. NO VOID, RN NOTIFIED. CALL LIGHT IN REACH. NO FURTHER NEEDS AT THIS TIME.
--- NOTE | 2019-01-17 14:33 | NUR ---
ASSISTED PT TO BATHROOM. DEPENDS WET AND VOIDED INTO TOILET, MISSED HAT. UPON WIPING THE RED SPOT REPORTED ON HER RIGHT BUTTOCK APPEARS TO BE VESICLES. HAD SANTO ALARCON AND DR AYALA LOOK AT THEM. SENT SAMPLES TO LAB. MOVED PT TO ROOM 117 FOR PRECAUTIONS. CHARGE CALLED FAMILY TO ALERT TO CHANGE. CALL LIGHT IN REACH, TV TURNED ON TO [employer].
--- NOTE | 2019-01-17 14:41 | NUR ---
CALLED GIORGI SRINI(SON) TO NOTIFY OF PT MOVED TO ROOM 117 DUE TO SMALL RASH ON BUTTOCKS, DUE TO SLIGHT CHANCE THIS COULD BE SHINGLES SWAB SENT AND PT MOVED TO REVERSE ISOLATION ROOM
--- NOTE | 2019-01-17 15:23 | NUR ---
PT SITTING UP IN CHAIR PLAYING WITH THE ITEMS ON HER SIDE TABLE. PUSHING BUTTONS ON REMOTE AND CALL LIGHT RANDOMLY. NO LONGER AWARE SHE IS IN HOSPITAL. KNOWS NAME AND BIRTHDAY ONLY.
--- NOTE | 2019-01-17 16:19 | NUR ---
pt sleeping in chair. woke for meds.
--- NOTE | 2019-01-17 18:01 | NUR ---
PT ASSISTED TO RESTROOM WITH FWW. A LITTLE UNSTEADY ON FEET. THEN INTO BED. VS STABLE. AFEBRILE ALTHOUGH FEELS WARM TO THE TOUCH. CALL LIGHT IN REACH
--- NOTE | 2019-01-17 19:15 | NUR ---
IN ROOM FOR REPORT, PT IS AWAKE IN BED. SHE DENIES NEEDS AT THIS TIME. CALL LIGHT IS CLOSE AND BED ALARM IS ON.
--- NOTE | 2019-01-17 20:05 | NUR ---
PT CALLED, WORRIED ABOUT THE [place] [employer].. AFRAID SHE WILL BE ATTACKED WHILE SHE SLEEPS. REASSURED PT THAT SHE IS SAFE AT THE HOSPITAL, WHICH SURPRISED HER THAT SHE WAS AT THE HOSPITAL. BEDALARM IN PLACE.
--- NOTE | 2019-01-17 20:57 | NUR ---
IN ROOM TO ASSESS PT AND ADMINISTER MEDICATIONS. SHE IS ORIENTED TO SELF AND PLACE AT THIS TIME. BUT TALKS ABOUT HER PARRENTS COMING TO VISIT HER TODAY. SHE REPORTS SOME ARTHRITIS PAIN BUT DENIES NEED TO TYLENOL AT THIS TIME. SHE ASKED IF IV COULD BE REMOVED AND I REMINDED HER SHE NEEDS TO KEEP IT FOR IV FLUIDS. SHE DENIES FURTHER NEEDS AT THIS TIME AND IV IS INFUSING FINE. CALL LIGHT IS CLOSE AND BED ALARM IS ON.
--- NOTE | 2019-01-17 22:34 | NUR ---
CALL LIGHT ANSWERED. THIS CLOTH BLEACHING RANGE BACK TENDER WENT IN THE ROOM SEEN PATIENT HALF UP, LEGS DANGLING, SIDE RAILS UP, BED ALARM SET DID NOT GO OFF. PATIENT STATED SHE NEEDS TO GO TO THE BATHROOM. SHARIFA GOMEZ AND THIS CLOTH BLEACHING RANGE BACK TENDER HELPED PATIENT USE THE BEDSIDE COMMODE. PATIENT IS BACK IN BED. CALL LIGHT IN REACH AND RE ORIENTED TO PATIENT HOW TO USE. BED ALARM ON. PRIMARY RN NOTIFIED AND COMPENSATION/BENEFITS SPECIALIST.
--- NOTE | 2019-01-18 00:55 | NUR ---
PATIENT ASSISTED A 2P JULES BSC. PATIENT WAS INCONTINENT AND WAS ABLE TO VOID. PATIENT COMPLAINS OF "ACHES AND PAIN". PATIENT GIVEN PRN TYLENOL. PATIENT IS BACK IN BED RESTING. ALARM ON FOR SAFETY AND CALL LIGHT IN REACH.
--- NOTE | 2019-01-18 02:50 | NUR ---
IN ROOM TO ADMINISTER ACYCLOVIR. PT DENIES NEED AT THIS TIME. WRAPPED IV WITH MORE COBAN BECAUSE PT WAS PICKING AT IT. CALL LIGHT IS CLOSE AND BED ALARM IS ON.
--- NOTE | 2019-01-18 04:31 | NUR ---
PT IS RESTING WITH EYES CLOSED, RR IS EVEN AND NONLABORED. IV IS INFUSING FINE AND CALL LIGHT IS CLOSE.
--- NOTE | 2019-01-18 05:45 | NUR ---
PT IS AWAKE IN BED PICKING AT BLANKETS. SHE DENIES NEEDS AT THIS TIME. CALL LIGHT IS CLOSE AND BED ALARM IS ON.
--- NOTE | 2019-01-18 06:59 | NUR ---
IN ROOM TO ADMINISTER ACYCLOVIR. PT JUST GOT NEW IV BY GRABIEL SKAGGS. CALL LIGHT IS CLOSE AND BED ALARM IS ON.
--- NOTE | 2019-01-18 08:09 | NUR ---
PT RESTING IN SEMIFOWLERS POSITION IN BED. PT ASSESSMENT COMPLETED. AM MEDS ADMINISTERED. CALL LIGHT AND H2O IN REACH. NO NEEDS OR CONCERNS VOICED.
--- NOTE | 2019-01-18 09:00 | NUR ---
Per 8:30 report, is considering sending Deysi to SNF. Family are not in and will speak with them when they come. Pt is awake and is pleasantly confused.
--- NOTE | 2019-01-18 11:00 | NUR ---
Family have not visited. Called Haydee and asked if we can have a family conference today at 4 pm. She will call me back.
--- NOTE | 2019-01-18 11:20 | NUR ---
Return call from Haydee. Family is unable to attend a meeting today but would be availabe at [address] Miller updated. Chart faxed to [facility]. They confirm they have a bed available. Face sheet, H&P, ER Note, progress notes faxed.
--- NOTE | 2019-01-18 11:28 | NUR ---
PT RESTING SUPINE IN BED ALERT AND ORIENTED TO SELF ONLY. PT REMAINS PLEASANTLY CONFUSED. PT REPORTS OVER ALL BODY ACHE, PRN PO TYLENOL ADMINISTERED PER PT REQUEST. CALL LIGHT AND H2O IN REACH. NO OTHER NEEDS OR CONCERNS VOICED.
--- NOTE | 2019-01-18 12:15 | NUR ---
PT ASSISTED UP TO BSC PER HER REQUEST AND THEN UP TO CHAIR. LUNCH TRAY ARRIVED AND I ASSISTED PT WITH SETTING THIS UP. PT NOW EATING LUNCH AND DENIES NEEDS OR CONCERNS. PT REMAINS IN VIEW OF NURSING STATION. CHAIR ALARM ON. FRESH H2O AND CALL LIGHT IN REACH AND PT WAS PROVIDED WITH WARM BLANKET.
--- NOTE | 2019-01-18 14:45 | NUR ---
CALLED DUE TO PT REPORTING CHEST PAIN PRESSURE, "ITS THE WORST" SHE SAID, EKG ORDERED STAT, ASA 325MG AND NITRO PO 0.4MG GIVEN. CURRENT BP 165/68, 84
--- NOTE | 2019-01-18 15:25 | NUR ---
PT RESTING SUPINE IN BED REPORTS PERSISTING PAIN CHEST MD AWARE AND VERBAL ORDER RECEVIED FOR PRN X1 DOSE OF NITRO SL NOW, SEE EMAR. CALL LIGHT AND H2O IN REACH. VSS.
--- NOTE | 2019-01-18 15:30 | NUR ---
PT DENIES CHEST PAIN AT THIS TIME. STATES " I JUST FEEL TIRED." VSS PT REMAINS ALERT BUT CONFUSED TO PERSON PLACE AND TIME. CALL LIGHT AND H2O IN REACH. NO OTHER NEEDS OR CONCERNS VOICED.
--- NOTE | 2019-01-18 17:00 | NUR ---
PT RESTING RECLINED IN CHAIR EYES CLOSED AND RESPIRATIONS EVEN AND UNLABORED. CALL LIGHT AND H2O IN REACH. DINNER ORDER PLACED. CAHIR ALARM ON.
--- NOTE | 2019-01-18 17:52 | EKG ---
[facility] [address] [place], [place] [address] Signed Sinus rhythm with occasional premature ventricular complexes Left axis deviation Right bundle branch block Septal infarct , age undetermined Abnormal ECG Confirmed by MATA AYALA DO ([id number]) on 01/18/2019 5:52:21 PM Electronically Signed By: MATA AYALA DO 01/18/19 1752 PATIENT NAME: MICHAEL PAULINO [facility] Electrocardiogram DATE OF : [birth year] PHYSICIAN: MATA AYALA DO REPORT #: [id number] REPORT IS CONFIDENTIAL AND NOT TO BE RELEASED WITHOUT AUTHORIZATION
--- NOTE | 2019-01-18 19:04 | NUR ---
IN ROOM FOR REPORT, PT IS AWAKE IN THE CHAIR. SHE DENIES NEEDS AT THIS TIME. SHE IS VISABLE FROM THE NURSES STATION. CALL LIGHT IS CLOSE AND IV IS INFUSING FINE.
--- NOTE | 2019-01-18 20:47 | NUR ---
PT IS AWAKE IN THE RECLINER. SHE IS CONFUSED AND NOT ORIENTED TO PLACE AND DATE. SENTANCES ARE NOT MAKING A LOT OF SENSE AT THIS TIME. SHE DENIES PAIN. ASSESSED PT AND ADMINISTERED MEDICATIONS. CALL LIGHT IS CLOSE AND CHAIR ALARM IS ON.
--- NOTE | 2019-01-18 22:16 | NUR ---
PT IS AWAKE IN CHAIR PULLING AT IV LINE. REDIRECTED HER ATTENTION AND IV IS INFUSING FINE. SHE DENIES NEEDS AND IS VISABLE FROM THE NURSES STATION. CALL LIGHT IS CLOSE AND CHAIR ALARM IS ON.
--- NOTE | 2019-01-18 23:35 | NUR ---
2P HEAVY ASSIST FROM CHAIR TO BSC THEN TO BED. PT DENIES FURTHER NEEDS AT THIS TIME. CALL LIGHT IS CLOSE AND BED ALARM IS ON.
--- NOTE | 2019-01-19 02:21 | NUR ---
PT IS RESTING WITH EYES CLOSED, RR IS EVEN AND NONLABORED. IV IS INFUSING FINE, CALL LIGHT IS CLOSE AND BED ALARM IS ON.
--- NOTE | 2019-01-19 03:05 | NUR ---
PT HAS BEEN SLEEPING WELL AND HER ATTENDS NEEDED TO BE CHANGED. PT WAS DIFFICULT TO WAKE BUT DID SO WITH TURNING AND CHANGING HER. SHE WAS ABLE TO SWALLOW HER PILLS AND IS BACK ASLEEP AT THIS TIME. CALL LIGHT IS CLOSE AND BED ALARM IS ON.
--- NOTE | 2019-01-19 04:54 | NUR ---
PT IS RESTING WITH EYES CLOSED, RR IS EVEN AND NONLABORED. CALL LIGHT IS CLOSE AND BED ALARM IS ON. IV IS INFUSING FINE.
--- NOTE | 2019-01-19 04:57 | NUR ---
PT SLEPT WELL THROUGH THE NIGHT, SHE HAS D5LR INFUSING AT 50MLS/HR. SHE IS A 2PA TO [facility] [place] AND HAD A HARD TIME FOLLOWING DIRECTIONS, OTHERWISE SHE IS INCONTINENT OF URINE. SHE IS ON A REGULAR DIET. SHE REMAINS CONFUSED WITH SOME TIMES WORSE THAN OTHERS. SHE REQUIRES A BED/CHAIR ALARM. SHE DENIES PAIN THROUGH THE NIGHT.
--- NOTE | 2019-01-19 06:40 | NUR ---
IN ROOM TO CHECK VS AND I&O'S. PT IS VERY SLEEPY AT THIS TIME, WILL HOLD OFF ON MEDICATION UNTIL SHE IS MORE AWAKE. CALL LIGHT IS CLOSE AND BED ALARM IS ON.
--- NOTE | 2019-01-19 07:20 | NUR ---
REPORT RECEIVED FROM SHARIFA VIEYRA. PT RESTING SUPINE IN BED EYES CLOSED AND RESPIRATIONS EVEN AND UNLABORED. CALL LIGHT AND H2O IN REACH.
--- NOTE | 2019-01-19 07:53 | NUR ---
PT RESTING SUPINE IN BED. PT VERY SLEEPY BUT AROUSES TO VOICE LONG ENOUGH TO SWALLOW PO MEDICATIONS AND THEN DRIFTS BACK TO SLEEP. ASSESSMENT COMPLETED. CALL LIGHT AND H2O IN REACH. VSS ON ROOM AIR. NO NEEDS OR CONCERNS VOICED AND PT APPEARS TO BE SLEEPING COMFORTABLY.
[2019-01-19] MEDS ORDERED: ACYCLOVIR400 MG PO (09:47)
[2019-01-19] MEDS ORDERED: AMLODIPINE BESYL5 MG PO (09:47)
[2019-01-19] MEDS ORDERED: DOK PLUS TABLE1 EACH PO (09:50)
[2019-01-19] MEDS ORDERED: POLYETHYLENE GL17 GM PO (09:51)
--- NOTE | 2019-01-19 10:21 | NUR ---
Family conference with Haydee and two of pt's son's Nael and Jed. Dr. Miller explained issues with pt and concerns. Recommendation for detention and family are in agreement. Received ok from Patt from [facility] yesterday for pt to be admitted. Called x 3 today to confirm, Patt is out of town and Rosario is working for Patt. I have not been able to contact her. Orders and transfer papers complete. Pt will need to go her WC van. Pt was drowsy throughout the meeting, but did tell son's hello.
--- NOTE | 2019-01-19 10:37 | NUR ---
FAXED THE PAPERWORK TO [facility] AND THE APPROVAL SHEET IS IN THE CHART.
--- NOTE | 2019-01-19 11:35 | NUR ---
PT RESTING RECLINED IN CHAIR ALERT, ALERT TO VOICE. PT TAKES SCHEDULE MED IN PUDDING. CALL LIGHT AND H2O IN REACH. NO NEEDS OR CONCERNS VOICED.
--- NOTE | 2019-01-19 11:48 | NUR ---
IV pump beeping, distal occlusion. IV flushed and wnl, patent. IV now infusing as ordered. call light and h2o in reach. Pt remains in view of nursing station.
--- NOTE | 2019-01-19 12:15 | NUR ---
PT RESTING RECLINED IN CHAIR ALERT TO VOICE. LUNCH TRAY ARRIVED AND PT ASSISTED IN SETTING UP MEAL AND IS NOW EATING INDEPENDANTLY. CALL LIGHT AND H2O IN REACH. NO NEEDS OR CONCERNS VOICED.
== END 2019-01-19 13:35 | DRG 64 ==
LOC: ED 17:50 → MS 17:52
PROVIDERS: ADMIT Internal Medicine
DX: I63.81 Other cerebral infarction due to occlusion or stenosis of small artery (principal); G93.41 Metabolic encephalopathy; F03.91 Unspecified dementia, unspecified severity, with behavioral disturbance; F05 Delirium due to known physiological condition; E86.0 Dehydration; I10 Essential (primary) hypertension; R07.9 Chest pain, unspecified; B00.9 Herpesviral infection, unspecified
CPT/HCPCS: 36415; 51701; 70450; 70551; 71045; 80048; 80053; 80061; 81001; 82607; 83690; 83735; 84439; 84443; 84484; 85025; 86140; 87070; 87088; 87205; 87529; 93005; 93010; 97110; 97116; 97163; 97530; 99285-25; J0696; J1650; J3475; J7040; J7121

== ENCOUNTER 2019-01-21 10:13 | Emergency (ER) | payer MEDICARE ==
[~2019-01-21] VITALS: Ht 167.6 cm; Wt 61.0 kg
[~2019-01-21 10:13] MED LIST changes: +ACYCLOVIR400 MG PO; +AMLODIPINE BESYL5 MG PO; +CIPRO500 MG PO; +DOK PLUS TABLE1 EACH PO; +POLYETHYLENE GL17 GM PO
--- OUTSIDE RECORDS SUMMARY | 2019-01-21 10:16 | XMS ---
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 01/16/2019-Current PHONE: [phone] Alexei Noel MD Treatment Current PHONE: Unknown Adenike Kirkpatrick Other Current [facility]ists PHONE: Unknown [place] has no Care Guidelines for this patient. Tye VISIT COUNT (12 MO.) 3 [facility] TOTAL 3 NOTE: Visits indicate total known visits. 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
== END 2019-01-21 13:30 | disposition home or self-care (01) ==
LOC: ED 10:13
DX: S42.201A Unspecified fracture of upper end of right humerus, initial encounter for closed fracture (principal); S00.03XA Contusion of scalp, initial encounter; W18.30XA Fall on same level, unspecified, initial encounter; Z79.899 Other long term (current) drug therapy
CPT/HCPCS: 70450; 72125; 73030; 99284-25

== ENCOUNTER 2019-04-29 18:52 | Inpatient (IN) | payer MEDICARE ==
[~2019-04-29] VITALS: Ht 167.6 cm; Wt 50.4 kg
[2019-04-29] MEDS ORDERED: BISACODYL10 MG PR (19:10)
[2019-05-01] MEDS ORDERED: ASPERCREME 1035.4 GM TOP (14:37)
[2019-05-01] MEDS ORDERED: TYLENOL EXTRA500 MG PO (14:37)
[2019-05-01] MEDS ORDERED: LOPERAMIDE2 M1 PO (14:39)
[2019-05-01] MEDS ORDERED: MIRALAX17 GM PO (14:39)
[2019-05-01] MEDS ORDERED: TYLENOL WITH C1 EACH PO (14:41)
--- NOTE | 2019-05-01 16:57 | EKG ---
[facility] [address] [place] [address] Signed Normal sinus rhythm Right bundle branch block Left anterior fascicular block Bifascicular block Possible Anteroseptal infarct (cited on or before 18-JAN-2019) Abnormal ECG When compared with ECG of 18-JAN-2019 14:53, premature ventricular complexes are no longer present Questionable change in initial forces of Anteroseptal leads T wave inversion no longer evident in Anterior leads Confirmed by SARIAH KHOURY MD ([id number]) on 05/01/2019 4:57:11 PM Electronically Signed By: SARIAH KHOURY MD 05/01/19 1657 PATIENT NAME: MICHAEL PAULINO Electrocardiogram DATE OF : [birth year] PHYSICIAN: SARIAH KHOURY MD REPORT #: [id number] REPORT IS CONFIDENTIAL AND NOT TO BE RELEASED WITHOUT AUTHORIZATION
--- NOTE | 2019-05-02 07:23 | CONS ---
[facility] [address] [place], [place] [address] Signed DATE OF CONSULTATION: 04/30/2019 HISTORY OF PRESENT ILLNESS: Deysi is an 88-year-old, white female, who apparently had a ground level fall yesterday. She was brought to the emergency room and imaging revealed a slightly apex anterior, but otherwise nondisplaced subcapital fracture of the right hip. She was admitted to the hospitalist service. At present time, there is no evidence of any other injuries. On her initial imaging, there was some concern for possible femoral fracture, but the CT scan was done, which shows no evidence of a femoral fracture about the knee. PAST MEDICAL HISTORY: Deferred to the hospitalist. MEDICATIONS: Deferred to the hospitalist. ALLERGIES: Deferred to the hospitalist. PHYSICAL EXAMINATION: GENERAL: On examination, she is actually sleeping comfortably in bed this morning just having been given some pain medication. She otherwise appears unremarkable. There is no other evidence of trauma. Neck is supple. Face is nontender. CHEST: Clear. CARDIAC: Reveals a regular rhythm. ABDOMEN: Unremarkable. EXTREMITIES: The right leg is slightly externally rotated, but not shortened. She is able to wiggle her toes. Pedal pulses are difficult to appreciate on either side. ASSESSMENT AND PLAN: Imaging including x-rays of the pelvis, CT scan of the pelvis and a CT scan of the right knee show a valgus impacted subcapital fracture with some anterior angulation in the right hip. Otherwise, there are no apparent osseous injuries. She would probably benefit from percutaneous cannulated screw fixation. I did discuss with Dr. Winn that I will be gone after the midportion of the week and she will need to remain on the hospitalist service with which he agreed. With the current change in OR scheduling per the recent la virus concerns, I will try to get her on the schedule for tomorrow morning. Electronically Signed By: BOLA ZAPATA MD 05/02/19722 PATIENT NAME: JEFFERSONDEYSI SEVERE CONSULTATION DATE OF : [birth year] REPORT #: [id number] PHYSICIAN: BOLA ZAPATA MD PCP: RUDY SENIOR MD REPORT IS CONFIDENTIAL AND NOT TO BE RELEASED WITHOUT AUTHORIZATION [place] [id number] [place] [id number] Signed Bola Zapata MD WFB/MODL /[id number] Copies: ~ Electronically Signed By: BOLA ZAPATA MD 05/02/19722 PATIENT NAME: JEFFERSONKENDRICKDEYSI SEVERE CONSULTATION DATE OF : [birth year] REPORT #: [id number] PHYSICIAN: BOLA ZAPATA MD PCP: RUDY SENIOR MD REPORT IS CONFIDENTIAL AND NOT TO BE RELEASED WITHOUT AUTHORIZATION
--- NOTE | 2019-05-02 07:23 | OR ---
[facility] [address] [place], [place] [address] Signed DATE OF OPERATION: 05/01/2019 SURGEON: Sonia Kahn MD PREOPERATIVE DIAGNOSIS: Impacted subcapital femoral fracture, right hip. POSTOPERATIVE DIAGNOSIS: Impacted subcapital femoral fracture, right hip. PROCEDURE: Percutaneous cannulated screw fixation, right hip fracture. ANESTHESIA: Spinal with some sedation. SPECIMENS AND COMPLICATIONS: There were no specimens or complications. BLOOD LOSS: Minimal. WHAT WAS DONE: The patient was taken to the operating room. After spinal anesthetic was administered, the patient was placed on the fracture table. The fracture was provisionally reduced with some traction and internal rotation. However, the fracture was relatively stiff leading to the supposition that this may not have been as acute as was initially thought. However, after getting the best reduction possible, she was prepped and draped in a routine sterile fashion. Under biplanar fluoroscopic control, we directed three 8-inch terminally threaded pins across the lateral femur up the neck and into the head. Again because of residual displacement, we allowed one of the pins to exit the neck and then reenter the head to give us a broader spread of fixation. We then replaced the pins with cannulated screws and we were happy with the alignment and position. The guidewires were removed. The wound was irrigated and closed and a sterile dressing applied. The patient was awakened and taken to recovery room where she arrived in stable condition. Counts were correct and antibiotic protocols were followed. Electronically Signed By: SONIA KAHN MD 05/02/19 0723 PATIENT NAME: MICHAEL PAULINO SEVERE OPERATIVE REPORT DATE OF : [birth year] REPORT #: [id number] PHYSICIAN: SONIA KAHN MD PCP: RUDY SENIOR MD REPORT IS CONFIDENTIAL AND NOT TO BE RELEASED WITHOUT AUTHORIZATION [address] [place], [place] [address] Signed Sonia Kahn MD WFB/MODL /[id number] Copies: ~ Electronically Signed By: SONIA KAHN MD 05/02/19 0723 PATIENT NAME: MICHAEL PAULINO SEVERE OPERATIVE REPORT DATE OF : [birth year] REPORT #: [id number] PHYSICIAN: SONIA KAHN MD PCP: RUDY SENIOR MD REPORT IS CONFIDENTIAL AND NOT TO BE RELEASED WITHOUT AUTHORIZATION
[2019-05-03] MEDS ORDERED: AMLODIPINE BESYL5 MG PO (09:26)
[2019-05-03] MEDS ORDERED: SULFAMETHOXAZO1 EAC1 PO (09:26)
[2019-05-03] MEDS ORDERED: OXYCODONE HCL5 MG PO (09:26)
[2019-05-03] MEDS ORDERED: TYLENOL EXTRA500 MG PO (09:27)
== END 2019-05-03 11:30 | DRG 481 ==
LOC: ED 18:52 → CCU 23:21 → ED 23:21 → MS 23:22 → FBC 23:22 → CCU 23:22 → FBC 04-30 07:45 → MS 05-01 03:30
PROVIDERS: Orthopaedic Surgery; ADMIT Internal Medicine
PROC: 0QS634Z Reposition Right Upper Femur with Internal Fixation Device, Percutaneous Approach (ICD-10-PCS; principal; 2019-05-01 07:30)
DX: M80.051A Age-related osteoporosis with current pathological fracture, right femur, initial encounter for fracture (principal); F05 Delirium due to known physiological condition; N39.0 Urinary tract infection, site not specified; G30.9 Alzheimer's disease, unspecified; F02.80 Dementia in other diseases classified elsewhere, unspecified severity, without behavioral disturbance, psychotic disturbance, mood disturbance, and anxiety; I10 Essential (primary) hypertension; B95.2 Enterococcus as the cause of diseases classified elsewhere; Z66 Do not resuscitate; Z79.899 Other long term (current) drug therapy; W19.XXXA Unspecified fall, initial encounter; Y92.099 Unspecified place in other non-institutional residence as the place of occurrence of the external cause
CPT/HCPCS: 01220; 36415; 51702; 51798; 71045; 72170; 73030; 73502; 73560; 73700; 80048; 80053; 81001; 83735; 85025; 87077; 87088; 87186; 93005; 93010; 97110; 97163; 97530; 99285-25; C1713; J0690; J1100; J1940; J2001; J2250; J2274; J2300; J2405; J2704; J3010; J7121